=== PATIENT | female | born 1945 | race Caucasian/White ===

== ENCOUNTER 2017-04-15 16:37 | Inpatient (IN) | payer MEDICARE, BC ==
[2017-04-15] MEDS ORDERED: NORMAL SALINE 1,000 ML IV ONE ×2 (17:04→19:41)
--- NOTE | 2017-04-15 17:20 | ERNOTE ---
Medical Problem HPI - Narrative Date of Service: 04/15/17 - General Chief Complaint: General Assessment Time Seen by Provider: 04/15/17 16:54 Source: patient Exam Limitations: no limitations - Immun/Allergies/Home Medications Immunizations: IMMUNIZATION HX Immunizations Up to Date Yes History of Influenza Vaccine Yes Hx Pneumococcal Vaccination Yes Allergies/Adverse Reactions: Allergies loratadine [From Claritin] Allergy (Unknown, Verified 04/15/17 16:55) pseudoephedrine HCl [From Sudafed] Allergy (Verified 04/15/17 16:55) enalapril maleate [From Vasotec] Adverse Reaction (Unknown, Verified 04/15/17 16 :55) enalaprilat dihydrate [From Vasotec] Adverse Reaction (Unknown, Verified 16:55) nitrofurantoin [From Macrobid] Adverse Reaction (Unknown, Verified 04/15/17 16: 55) nitrofurantoin macrocrystalline [From Macrobid] Adverse Reaction (Unknown, Verified 04/15/17 16:55) Penicillins Adverse Reaction (Unknown, Verified 04/15/17 16:55) Home Medications: HOME MEDICATIONS Aspirin [Aspirin EC] 81 mg PO DAILY 01/04/16 [Last Taken 01/04/16 08:00] Calcium Carbonate/Vitamin D3 [Os-Doug 500-Vit D3 600 Caplet] 1 each PO TID [Last Taken 01/04/16 12:00] Magnesium 250 mg PO DAILY 01/04/16 [Last Taken 01/04/16 08:00] Montelukast Sodium [Singulair] 10 mg PO DAILY 01/04/16 [Last Taken 01/03/16] Omeprazole [Prilosec] 40 mg PO BID 01/04/16 [Last Taken 01/04/16 08:00] Levothyroxine Sodium [Synthroid] 25 mcg PO DAILY #30 tablet 01/12/16 [Last Taken Unknown] Melatonin 3,000 mcg PO HS tablet 01/12/16 [Last Taken Unknown] Atorvastatin Calcium [Lipitor] 40 mg PO DAILY 03/07/16 [Last Taken Unknown] Docusate Sodium [Colace] 100 mg PO BID 03/07/16 [Last Taken Unknown] Hydrochlorothiazide 12.5 mg PO DAILY 03/07/16 [Last Taken Unknown] Albuterol Sulfate [Proair Hfa] 1 - 2 puff IH Q4H PRN 04/15/17 [Last Taken Unknown] Carbidopa/Levodopa 25/100 [Sinemet 25/100] 2 tab PO QID 04/15/17 [Last Taken Unknown] Methenamine Hippurate 1 gm PO BID 04/15/17 [Last Taken Unknown] Montelukast Sodium [Singulair] 10 mg PO HS 04/15/17 [Last Taken Unknown] QUEtiapine FUMARATE [Seroquel] 25 mg PO BID 04/15/17 [Last Taken Unknown] QUEtiapine FUMARATE [Seroquel] 75 mg PO HS 04/15/17 [Last Taken Unknown] QUEtiapine FUMARATE [Seroquel] 125 mg PO QAM 04/15/17 [Last Taken Unknown] - History of Present History Narrative: Pt. comes in with c/o weakness, SOB with exertion, mid sternal chest pain, fever , dysuria, nausea, and vomiting for three days. Pt. states that symptoms have worsened over the past three days and pt. has become very weak over the past day. Pt. denies any dizziness, diarrhea, abd pain, recent falls, illness, prehospital treatment, alleviating factors, aggravating factors or prehospital treatment. Review of Systems - Review of Systems Constitutional: Present: fever, diaphoresis, weakness, fatigue, malaise. Absent : chills, weight loss EYE: Present: no symptoms reported ENT: Present: no symptoms reported Respiratory: Present: shortness of breath. Absent: cough, orthopnea, wheezing Cardiology: Present: chest pain. Absent: palpitations, syncope, edema Gastrointestinal/Abdominal: Present: nausea, vomiting. Absent: diarrhea, abdominal pain Genitourinary: Present: dysuria. Absent: frequency, pain, decreased urinary output Musculoskeletal: Present: no symptoms reported. Absent: back pain, neck pain, joint pain Skin: Present: no symptoms reported. Absent: change in color Neurological: Present: weakness. Absent: headache, dizziness/light-headedness, numbness, tingling All Other Systems: All systems neg except as marked - Patient's Past Medical History Patient History - Medical: Anxiety, Diabetes Type 2, GERD, Headache, Hypothyroidism, Kidney stone, Osteoporosis, UTI'S Patient History - Cardiac/Respiratory: No pertinent hx Patient History - Cancer: No Hx of Cancer Patient History - Surgical Procedures: Appendectomy, Cholecystectomy, Colon Resection, , Hysterectomy, Other Patient History - Other: None - Family History Father Family History - Medical: , Diabetes Type 1 Family History - Cardiac/Respiratory: CVA/Stroke Mother Family History - Medical: , UTI'S - Social History Living Situations: home Abuse History: No History of abuse Psych History: Hx of Anxiety Does anyone smoke in the home?: No Smoking Status: Never smoker Alcohol Use: none Drug Use: none - Immunizations Immunizations Up to Date: Yes Hx Pneumococcal Vaccination: Yes History of Influenza Vaccine: Yes Physical Exam - Physical Exam General Appearance: Present: wd/wn, lethargic Head Exam: Present: normal inspection, no evidence of injury Eye Exam: Normal inspection: bilateral, PERRL: bilateral, EOMI: bilateral Ears, Nose, Throat: Present: normal ENT inspection, normal pharynx Neck: Present: normal inspection, nontender. Absent: lymphadenopathy (R), lymphadenopathy (L) Respiratory: Present: no respiratory distress, normal breath sounds, no accessory muscle use, chest nontender, lungs clear. Absent: rales, rhonchi, wheezing Cardiovascular/Chest: Present: no murmur, normal peripheral pulses, tachycardia Gastrointestinal/Abdominal: Present: normal bowel sounds, nondistended, soft, no organomegaly, tenderness - mid upper epigastric Back Exam: Present: normal inspection, normal range of motion, no CVA tenderness , no vertebral tenderness Extremity Exam: Present: normal inspection, non-tender, normal range of motion, no edema Neurological Exam: Present: oriented, normal mood/affect, management professionals II-XII nml as tested, normal cerebellar test - gross general tremor, motor weakness - generalized Skin Exam: Present: warm/dry, pallor ED Progress - Date and Time Seen: Date and Time: 04/15/17 18:17 Pt. with evidence of systemic infection and hypokalemia will start replacing potassium and evaluate for site of infection. 04/15/17 18:[address] Copeland and will admit to her service for Urosepsis, and hypokalemia. - Vital Signs Patient's Vital Signs:: I have reviewed the patient's vital signs. Vital Signs: Vital Signs 04/15/17 16:46 Temperature 37.8 C H Pulse Rate 107 H Respiratory 16 Rate Blood Pressure 120/64 O2 Sat by Pulse 95 Oximetry - EKG EKG: other - sinus tachycardia rate in 90s to low 100s with artifact in ECG unable to measure for ST changes. EKG read: Reviewed by me - Progress/Reassessment Chief Complaint: General Assessment Departure - Departure Clinical Impression: Hypokalemia, Elevated procalcitonin Sepsis Qualifiers: Sepsis type: sepsis due to unspecified organism Qualified Code(s): A41.9 - Sepsis, unspecified organism UTI (urinary tract infection) Qualifiers: Urinary tract infection type: acute cystitis Hematuria presence: without hematuria Qualified Code(s): N30.00 - Acute cystitis without hematuria Disposition: [facility] Condition: Serious
[2017-04-15 17:22] LABS: Hemoglobin 12.6 gm/dL (12.5-16.0); Mean Cell Volume 83.5 fl (78-100); Mean Corpuscular Hemoglobin 28.4 pg (27-31); Mean Corpuscular Hgb Conc 34.1 g/dl (32-36); Mean Platelet Volume 11.3 fl (6.0-9.5); Platelet Count 107 K/mm3 (150-450); Red Blood Count 4.43 M/mm3 (4.2-5.4); Red Cell Distribution Width 15.9 % (11.5-14.0); White Blood Count 17.8 K/mm3 (4.0-10.5)
[2017-04-15 17:32] LABS: Total Cells Counted 100
[2017-04-15 17:42] LABS: ALT 6 U/L (19-67); AST 12 U/L (0-48); Albumin * 3.1 gm/dl (3.4-5.0); Alkaline Phosphatase * 96 U/L (50-170); Amylase * 25 U/L (25-115); Anion Gap 19.1 mmol/L (6.8-13.8); BNP * 425 pg/mL (5-325); Bilirubin, Total 1.2 mg/dL (0.0-1.1); Blood Urea Nitrogen 20 mg/dL (3-23); Ca. Corrected For Albumin 9.3 mg/dL (8.4-10.2); Calcium * 8.9 mg/dL (7.9-10.9); Carbon Dioxide 22.7 mmol/L (24-32.6); Chloride 97 mmol/L (97-106); Glucose * 150 mg/dL (70-110); Lipase 72 U/L (73-393); Potassium 2.8 mmol/L (3.4-4.6); Sodium 136 mmol/L (132-142); Total Protein 7.8 gm/dL (6.2-8.2); Troponin I Less than 0.017 ng/ml (0.00-0.10)
[2017-04-15] MEDS: POTASSIUM CHLORIDE 100 ML IV SCH ×5 (18:02→23:24)
[2017-04-15 18:03] LABS: Urine Bilirubin Negative (NEGATIVE); Urine Blood 250 /ul (NEGATIVE); Urine Ketone 5 mg/dL (NEGATIVE); Urine Nitrite Negative (NEGATIVE); Urine Protein 100 mg/dL (NEGATIVE); Urine Urobilinogen Normal (NORMAL)
[2017-04-15 18:19] LABS: Urine Appearance Cloudy; Urine Color Yellow; Urine WBC >50 /hpf (0-5)
[2017-04-15 18:20] LABS: Urine Bacteria 3+
[2017-04-15 18:38] LABS: Band 2 % (0-2.0); Lymphocyte 2 % (20-51); Monocyte 14 % (0-9); Neutrophil 82 % (42-75); Neutrophil # 14.6 K/mm3 (1.3-6.0)
[2017-04-15 18:40] LABS: Platelet Estimate Decreased (NORMAL); RBC Morphology Normal (NORMAL)
[2017-04-15 18:41] LABS: Dohle Bodies 1+; Giant Platelets 1+; Toxic Granulation Trace
[2017-04-15] MEDS: NORMAL SALINE 1,000 ML IV PRN ×2 (18:44→22:48)
[2017-04-15] MEDS ORDERED: ACETAMINOPHEN 325 MG TABLET PO ONE (19:03)
[2017-04-15] MEDS ORDERED: ACETAMINOPHEN 325 MG TABLET ONE (19:04)
[2017-04-15] MEDS ORDERED: ALBUTEROL SULFATE 2.5 MG/3 ML VIAL.NEB IH ONE (19:20)
[2017-04-15] MEDS ORDERED: ALBUTEROL SULFATE 2.5 MG/0.5 ML VIAL.NEB IH ONE ×2 (19:20)
[2017-04-15] MEDS ORDERED: LORazepam 2 MG/ML DISP.SYRIN IV ONE (19:21)
[2017-04-15] MEDS ORDERED: LORazepam 2 MG/ML DISP.SYRIN ONE (19:21)
[2017-04-15] MEDS ORDERED: KETOROLAC TROMETHAMINE 30 MG/ML VIAL IV ONE (19:39)
[2017-04-15] MEDS ORDERED: KETOROLAC TROMETHAMINE 30 MG/ML VIAL ONE (19:41)
[2017-04-15] MEDS ORDERED: NORMAL SALINE 1,000 ML IV PRN (20:16)
[2017-04-15] MEDS ORDERED: ALBUTEROL SULFATE 200 PUFF INHALER IH PRN ×2 (21:49)
--- NOTE | 2017-04-15 22:11 | HP ---
<IasiMouna - Last Filed: 04/16/17 06:07> Chief Complaint - Chief Complaint Date of Service: 04/15/17 Time of Service: 20:45 Chief Complaint: " Weakness, nausea, burning pain with urination". Source of HPI- Pt; reliable, pt's daughter- Gene, ER provider report. History of Present Illness: Mrs. Fisher is a 71-yr-old WF of Dr. Evaristo Vincent with a PMH of: Anxiety, Asthma, Diabetes, GERD,HTN, Kidney Stones, Lewy Body Dementia, Osteoporosis, Parkinsonism & Shy- Drager Syndrome. History is mostly provided by pt's daughter Wicho. She states that Mrs. Fisher begun developing nausea & weakness and had a low grade fever of 99.7 on Friday 04/13. On Friday, She had no appetite, her weakness was getting worse and she complained of burning pain with urination. Then today, she begun vomiting and was still very weak and therefore they chose to bring her to the [facility] ER. She denies coughing , SOB, Abdominal pain & diarrhea. At the ED, the CXR did not have any acute findings. However, the Lab-work was remarkable for:Leukocytotis with a WBC of 17 ,800 and left shift, elevated lactic acid of 3.4, & Hypokalemia with a 2.8 level. The UA revealed she had a UTI. She was also febrile with temps of 39.0, was tachycardic and tachypneic. She will need to be admitted inpatient due to Sepsis secondary to a UTI. - Patient's Past Medical History Patient History - Medical: Anxiety, GERD, Headache, Hypothyroidism, Kidney stone , Osteoporosis, UTI'S, Other - ewy Body Dementia, Osteoporosis, Parkinsonism & Shy- Drager Syndrome. Patient History - Cardiac/Respiratory: No pertinent hx, Hypertension Patient History - Cancer: No Hx of Cancer Patient History - Surgical Procedures: Appendectomy, Cholecystectomy, Colon Resection, , Hysterectomy, Other Patient History - Other: None LMP (females 10-50): unknown - Family History Father Family History - Medical: , Diabetes Type 2 Family History - Cardiac/Respiratory: CVA/Stroke Family History - Cancer: Pancreatic Mother Family History - Medical: , UTI'S Family History - Cardiac/Respiratory: No pertinent hx Family History - Cancer: Melanoma - Social History Living Situations: home Abuse History: No History of abuse Psych History: Hx of Anxiety Does anyone smoke in the home?: No Smoking Status: Never smoker Have you smoked in the past 12 months: No Do you dip or chew tobacco: No Alcohol Use: none Drug Use: none - Immunizations Immunizations Up to Date: Yes Hx Pneumococcal Vaccination: Yes History of Influenza Vaccine: Yes Review Of Systems (GEN) - Review of Systems Generalized/Overall Review: Present: Weakness, Chills, Fever, Malaise, Diaphoresis EENTM: Absent: Eye Pain, Blurred Vision, Double Vision Respiratory: Absent: Cough, Shortness of Breath, Orthopnea Cardiac: Absent: Chest Pain, Edema, Palpitations Abdominal: Present: Nausea, Vomiting. Absent: Hematemesis, Abdominal Pain, Constipation, Diarrhea Genitourinary: Present: Burning, Urgency, Frequency. Absent: Incontinent, Hematuria Musculoskeletal: Absent: Joint Pain, Back Pain, Joint Swelling Neurological: Present: Tremors. Absent: Headache, Anxiety, Depressed Skin: Present: Dryness, Lesions Endocrine: Present: Intolerance to Cold. Absent: Increased Hunger, Increased Thirst Misc: All systems neg except as marked Allergies/Adverse Reactions: Allergies Allergy/AdvReac Type Severity Reaction Status Date / Time loratadine [From Claritin] Allergy Unknown Verified 04/15/17 16:55 pseudoephedrine HCl Allergy Verified 04/15/17 16:55 [From Sudafed] enalapril maleate AdvReac Unknown Verified 04/15/17 16:55 [From Vasotec] enalaprilat dihydrate AdvReac Unknown Verified 04/15/17 16:55 [From Vasotec] nitrofurantoin AdvReac Unknown Verified 04/15/17 16:55 [From Macrobid] nitrofurantoin AdvReac Unknown Verified 04/15/17 16:55 macrocrystalline [From Macrobid] Penicillins AdvReac Unknown Verified 04/15/17 16:55 Home Medications: HOME MEDICATIONS Aspirin [Aspirin EC] 81 mg PO DAILY 01/04/16 [Last Taken 01/04/16 08:00] Calcium Carbonate/Vitamin D3 [Os-Doug 500-Vit D3 600 Caplet] 1 each PO TID [Last Taken 01/04/16 12:00] Magnesium 250 mg PO DAILY 01/04/16 [Last Taken 01/04/16 08:00] Montelukast Sodium [Singulair] 10 mg PO DAILY 01/04/16 [Last Taken 01/03/16] Omeprazole [Prilosec] 40 mg PO BID 01/04/16 [Last Taken 01/04/16 08:00] Levothyroxine Sodium [Synthroid] 25 mcg PO DAILY #30 tablet 01/12/16 [Last Taken Unknown] Melatonin 3,000 mcg PO HS tablet 01/12/16 [Last Taken Unknown] Atorvastatin Calcium [Lipitor] 40 mg PO DAILY 03/07/16 [Last Taken Unknown] Docusate Sodium [Colace] 100 mg PO BID 03/07/16 [Last Taken Unknown] Hydrochlorothiazide 12.5 mg PO DAILY 03/07/16 [Last Taken Unknown] Albuterol Sulfate [Proair Hfa] 1 - 2 puff IH Q4H PRN 04/15/17 [Last Taken Unknown] Carbidopa/Levodopa 25/100 [Sinemet 25/100] 2 tab PO TID 04/15/17 [Last Taken Unknown] Carbidopa/Levodopa Cr 50/200 [Sinemet Cr 50/200] 1 tab PO HS 04/15/17 [Last Taken 04/14/17 20:00] Carbidopa/Levodopa [Carbidopa-Levodopa 25-100 Tab] 1 each PO HS 04/15/17 [Last Taken 04/14/17 20:00] Methenamine Hippurate 1 gm PO BID 04/15/17 [Last Taken Unknown] QUEtiapine FUMARATE [Seroquel] 12.5 mg PO DAILY 04/15/17 [Last Taken 04/15/17 08 :00] QUEtiapine FUMARATE [Seroquel] 25 mg PO BID 04/15/17 [Last Taken Unknown] QUEtiapine FUMARATE [Seroquel] 75 mg PO HS 04/15/17 [Last Taken Unknown] Exam - Exam Vital Signs: Vital Signs - Last Taken Temp 39 C H 04/15/17 21:47 Pulse 105 H 04/15/17 21:47 Resp 28 H 04/15/17 21:47 BP 105/64 04/15/17 21:47 Pulse Ox 97 04/15/17 21:47 Constitutional: Present: Alert, Oriented x3, Cooperative, Mild distress ENT Exam: Present: hearing grossly normal, dry mucous membranes. Absent: nasal drainage, pharyngeal erythema Eye Exam: bilateral eye: normal inspection, PERRL Neck: Present: full range of motion, supple, normal inspection Back Exam: Present: normal inspection, no CVA tenderness Breasts: Present: Exam deferred Respiratory: Present: lungs clear, No rales, No wheezing Cardiovascular/Chest: Present: regular rate, rhythm, no chest tenderness, no edema Abdomen: Present: Normal bowel sounds, soft, nontender /Rectal: Present: Exam deferred Extremity: Present: normal range of motion, non-tender, normal inspection Skin Exam: Present: no cyanosis, diaphoresis Lymphatic: Present: no adenopathy Neurologic: Present: alert, oriented x 3, other - Tremors Appearance: Present: appropriate appearance, impaired remote memory Eye contact: Present: good eye contact, normal speech Thoughts: Present: normal thought pattern, no apparent hallucination Diagnostic Studies: Abnormal Lab Results 04/15/17 Range/Units 19:54 Lactic Acid, Venous 3.4 H* (0.4-1.9) mmol/L Laboratory Results WBC 17.8 K/mm3 (4.0-10.5) H 04/15/17 17:20 RBC 4.43 M/mm3 (4.2-5.4) 04/15/17 17:20 Hgb 12.6 gm/dL (12.5-16.0) 04/15/17 17:20 Hct 37.0 % (37.0-47.0) 04/15/17 17:20 MCV 83.5 fl (78-100) 04/15/17 17:20 MCH 28.4 pg (27-31) 04/15/17 17:20 MCHC 34.1 g/dl (32-36) 04/15/17 17:20 RDW 15.9 % (11.5-14.0) H 04/15/17 17:20 Plt Count 107 K/mm3 (150-450) L 04/15/17 17:20 MPV 11.3 fl (6.0-9.5) H 04/15/17 17:20 Neutrophils % (Manual) 82 % (42-75) H 04/15/17 17:20 Band Neuts % (Manual) 2 % (0-2.0) 04/15/17 17:20 Lymphocytes % (Manual) 2 % (20-51) L 04/15/17 17:20 Monocytes % (Manual) 14 % (0-9) H 04/15/17 17:20 Neutrophils # (Manual) 14.6 K/mm3 (1.3-6.0) H 04/15/17 17:20 Lymphocytes # (Manual) 0.4 k/mm3 (1.5-3.5) L 04/15/17 17:20 Monocytes # (Manual) 2.5 k/mm3 (0.0-1.0) H 04/15/17 17:20 Toxic Granulation Trace 04/15/17 17:20 Dohle Bodies 1+ 04/15/17 17:20 Platelet Estimate Decreased (NORMAL) L 04/15/17 17:20 Giant Platelets 1+ 04/15/17 17:20 RBC Morphology Normal (NORMAL) 04/15/17 17:20 Elliptocytes 1+ 04/15/17 17:20 Sodium 136 mmol/L (132-142) 04/15/17 17:20 Plasma Sodium 137 mmol/L (130-142) 04/15/17 17:20 Potassium 2.8 mmol/L (3.4-4.6) L D 04/15/17 17:20 Chloride 97 mmol/L (97-106) 04/15/17 17:20 Carbon Dioxide 22.7 mmol/L (24-32.6) L 04/15/17 17:20 Anion Gap 19.1 mmol/L (6.8-13.8) H 04/15/17 17:20 BUN 20 mg/dL (3-23) 04/15/17 17:20 Creatinine 1.43 mg/dL (0.4-1.4) H D 04/15/17 17:20 Est GFR (Non-Af Amer) 38 mL/min (60-130) L D 04/15/17 17:20 BUN/Creatinine Ratio 14.0 (9.0-21.6) 04/15/17 17:20 Random Glucose 150 mg/dL (70-110) H 04/15/17 17:20 Lactic Acid, Venous 3.4 mmol/L (0.4-1.9) H* 04/15/17 19:54 Calcium 8.9 mg/dL (7.9-10.9) 04/15/17 17:20 Calcium Adj for Albumin 9.3 mg/dL (8.4-10.2) 04/15/17 17:20 Total Bilirubin 1.2 mg/dL (0.0-1.1) H 04/15/17 17:20 AST 12 U/L (0-48) 04/15/17 17:20 ALT 6 U/L (19-67) L 04/15/17 17:20 Alkaline Phosphatase 96 U/L (50-170) 04/15/17 17:20 Troponin I Less than 0.017 ng/ml (0.00-0.10) 04/15/17 17:20 B-Natriuretic Peptide 425 pg/mL (5-325) H 04/15/17 17:20 Total Protein 7.8 gm/dL (6.2-8.2) 04/15/17 17:20 Albumin 3.1 gm/dl (3.4-5.0) L 04/15/17 17:20 Amylase 25 U/L (25-115) 04/15/17 17:20 Lipase 72 U/L (73-393) L 04/15/17 17:20 Procalcitonin 5.10 ng/mL (0.05-0.50) H 04/15/17 17:20 Urine Color Yellow 04/15/17 17:51 Urine Appearance Cloudy 04/15/17 17:51 Urine pH 6.0 pH (5.0-7.0) 04/15/17 17:51 Ur Specific [place] 1.020 SP.GR. (1.005-1.010) 04/15/17 17:51 Urine Protein 100 mg/dL (NEGATIVE) H 04/15/17 17:51 Urine Glucose (UA) Negative mg/dL (NEGATIVE) 04/15/17 17:51 Urine Ketones 5 mg/dL (NEGATIVE) 04/15/17 17:51 Urine Blood 250 /ul (NEGATIVE) H 04/15/17 17:51 Urine Nitrate Negative (NEGATIVE) 04/15/17 17:51 Urine Bilirubin Negative mg/dl (NEGATIVE) 04/15/17 17:51 Prot Sulfosalicylic Acd QNS 04/15/17 17:51 Urine Urobilinogen Normal EU/dl (NORMAL) 04/15/17 17:51 Ur Leukocyte Esterase 100 /ul (NEGATIVE) H 04/15/17 17:51 Urine RBC 5-10 /hpf (0-5) H 04/15/17 17:51 Urine WBC >50 /hpf (0-5) H 04/15/17 17:51 Ur Epithelial Cells Trace /hpf (0-5) 04/15/17 17:51 Urine Bacteria 3+ (NONE) H 04/15/17 17:51 Hyaline Casts 5-10 /LPF (NONE) H 04/15/17 17:51 Urine Culture Comments Culture to follow 04/15/17 17:51 Assessment/Plan - Assessment/Plan (1) Sepsis Assessment: Pt noted to have fevers, elevated WBC, tachycardia, tachypnea, elevated lactic acid & Suspected source of infection being a UTI thus qualifying her to be admitted inpatient for Sepsis. Received treatment under sepsis protocol; aggressive IVF hydration, IV Antibiotics, trending lactic acid. Monitor CBC in am. Problem: Acute QualifierTitle: Sepsis type: sepsis due to unspecified organism Qualified Code(s): A41.9 - Sepsis, unspecified organism (2) Hypokalemia Assessment: K noted to be 2.8. Received Pottasium 40 meq IV replenishment. BMP in am. Problem: Acute (3) UTI (urinary tract infection) Assessment: UA shows UTI. On Rocephin IV. Will switch antibiotics once urine culture results. Problem: Acute QualifierTitle: Urinary tract infection type: acute cystitis Hematuria presence: without hematuria Qualified Code(s): N30.00 - Acute cystitis without hematuria (4) HTN (hypertension) Assessment: Stable- On hydrochlorothiazide. Problem: Chronic QualifierTitle: Hypertension type: essential hypertension Qualified Code( s): I10 - Essential (primary) hypertension (5) Parkinson disease Assessment: Stable- On Carbidopa/Levodopa. Problem: Chronic (6) GERD (gastroesophageal reflux disease) Assessment: Stable- On Protonix. Problem: Chronic (7) Anxiety Problem: Chronic <Evaristo Vincent - Last Filed: 04/16/17 08:16> Immunizations: IMMUNIZATION HX Immunizations Up to Date Yes History of Influenza Vaccine Yes Hx Pneumococcal Vaccination Yes Exam - Exam Vital Signs: Vital Signs - Last Taken Temp 36.8 C 04/16/17 05:35 Pulse 80 04/16/17 05:35 Resp 18 04/16/17 05:35 BP 138/62 04/16/17 05:35 Pulse Ox 100 04/16/17 05:35 Diagnostic Studies: Abnormal Lab Results 04/15/17 04/16/17 04/16/17 Range/Units 19:54 05:57 05:57 WBC 13.2 H D (4.0-10.5) K/mm3 RBC 3.92 L (4.2-5.4) M/mm3 Hgb 11.1 L (12.5-16.0) gm/dL Hct 33.7 L (37.0-47.0) % RDW 16.0 H (11.5-14.0) % Plt Count 88 L (150-450) K/mm3 MPV 11.9 H (6.0-9.5) fl Band Neuts % (Manual) 13 H (0-2.0) % Lymphocytes % (Manual) 5 L (20-51) % Neutrophils # (Manual) 9.9 H (1.3-6.0) K/mm3 Lymphocytes # (Manual) 0.7 L (1.5-3.5) k/mm3 Platelet Estimate Decreased L (NORMAL) Anion Gap 14.1 H (6.8-13.8) mmol/L Est GFR (Non-Af Amer) 41 L (60-130) mL/min Lactic Acid, Venous 3.4 H* (0.4-1.9) mmol/L Calcium 7.8 L (7.9-10.9) mg/dL Laboratory Results WBC 13.2 K/mm3 (4.0-10.5) H D 04/16/17 05:57 RBC 3.92 M/mm3 (4.2-5.4) L 04/16/17 05:57 Hgb 11.1 gm/dL (12.5-16.0) L 04/16/17 05:57 Hct 33.7 % (37.0-47.0) L 04/16/17 05:57 MCV 86.0 fl (78-100) 04/16/17 05:57 MCH 28.3 pg (27-31) 04/16/17 05:57 MCHC 32.9 g/dl (32-36) 04/16/17 05:57 RDW 16.0 % (11.5-14.0) H 04/16/17 05:57 Plt Count 88 K/mm3 (150-450) L 04/16/17 05:57 MPV 11.9 fl (6.0-9.5) H 04/16/17 05:57 Neutrophils % (Manual) 75 % (42-75) 04/16/17 05:57 Band Neuts % (Manual) 13 % (0-2.0) H 04/16/17 05:57 Lymphocytes % (Manual) 5 % (20-51) L 04/16/17 05:57 Monocytes % (Manual) 6 % (0-9) 04/16/17 05:57 Neutrophils # (Manual) 9.9 K/mm3 (1.3-6.0) H 04/16/17 05:57 Lymphocytes # (Manual) 0.7 k/mm3 (1.5-3.5) L 04/16/17 05:57 Monocytes # (Manual) 0.8 k/mm3 (0.0-1.0) 04/16/17 05:57 Atypic/Reactive Lymphs 1 % (0-2) 04/16/17 05:57 Toxic Granulation Trace 04/16/17 05:57 Toxic Vacuolation Trace 04/16/17 05:57 Dohle Bodies 1+ 04/15/17 17:20 Platelet Estimate Decreased (NORMAL) L 04/16/17 05:57 Giant Platelets 1+ 04/15/17 17:20 RBC Morphology +n (NORMAL) 04/16/17 05:57 Elliptocytes 1+ 04/15/17 17:20 Sodium 142 mmol/L (132-142) 04/16/17 05:57 Plasma Sodium 142 mmol/L (130-142) 04/16/17 05:57 Potassium 3.5 mmol/L (3.4-4.6) D 04/16/17 05:57 Chloride 106 mmol/L (97-106) 04/16/17 05:57 Carbon Dioxide 25.4 mmol/L (24-32.6) 04/16/17 05:57 Anion Gap 14.1 mmol/L (6.8-13.8) H 04/16/17 05:57 BUN 21 mg/dL (3-23) 04/16/17 05:57 Creatinine 1.35 mg/dL (0.4-1.4) 04/16/17 05:57 Est GFR (Non-Af Amer) 41 mL/min (60-130) L 04/16/17 05:57 BUN/Creatinine Ratio 15.6 (9.0-21.6) 04/16/17 05:57 Random Glucose 107 mg/dL (70-110) 04/16/17 05:57 Lactic Acid, Venous 3.4 mmol/L (0.4-1.9) H* 04/15/17 19:54 Calcium 7.8 mg/dL (7.9-10.9) L 04/16/17 05:57 Calcium Adj for Albumin 9.3 mg/dL (8.4-10.2) 04/15/17 17:20 Total Bilirubin 1.2 mg/dL (0.0-1.1) H 04/15/17 17:20 AST 12 U/L (0-48) 04/15/17 17:20 ALT 6 U/L (19-67) L 04/15/17 17:20 Alkaline Phosphatase 96 U/L (50-170) 04/15/17 17:20 Troponin I Less than 0.017 ng/ml (0.00-0.10) 04/15/17 17:20 B-Natriuretic Peptide 425 pg/mL (5-325) H 04/15/17 17:20 Total Protein 7.8 gm/dL (6.2-8.2) 04/15/17 17:20 Albumin 3.1 gm/dl (3.4-5.0) L 04/15/17 17:20 Amylase 25 U/L (25-115) 04/15/17 17:20 Lipase 72 U/L (73-393) L 04/15/17 17:20 Procalcitonin 5.10 ng/mL (0.05-0.50) H 04/15/17 17:20 Urine Color Yellow 04/15/17 17:51 Urine Appearance Cloudy 04/15/17 17:51 Urine pH 6.0 pH (5.0-7.0) 04/15/17 17:51 Ur Specific [place] 1.020 SP.GR. (1.005-1.010) 04/15/17 17:51 Urine Protein 100 mg/dL (NEGATIVE) H 04/15/17 17:51 Urine Glucose (UA) Negative mg/dL (NEGATIVE) 04/15/17 17:51 Urine Ketones 5 mg/dL (NEGATIVE) 04/15/17 17:51 Urine Blood 250 /ul (NEGATIVE) H 04/15/17 17:51 Urine Nitrate Negative (NEGATIVE) 04/15/17 17:51 Urine Bilirubin Negative mg/dl (NEGATIVE) 04/15/17 17:51 Prot Sulfosalicylic Acd QNS 04/15/17 17:51 Urine Urobilinogen Normal EU/dl (NORMAL) 04/15/17 17:51 Ur Leukocyte Esterase 100 /ul (NEGATIVE) H 04/15/17 17:51 Urine RBC 5-10 /hpf (0-5) H 04/15/17 17:51 Urine WBC >50 /hpf (0-5) H 04/15/17 17:51 Ur Epithelial Cells Trace /hpf (0-5) 04/15/17 17:51 Urine Bacteria 3+ (NONE) H 04/15/17 17:51 Hyaline Casts 5-10 /LPF (NONE) H 04/15/17 17:51 Urine Culture Comments Culture to follow 04/15/17 17:51 Assessment/Plan - Narrative Narrative: I agree with the assessment and plan, except that the patient qualifies for acute care. I directed all of our nurse practitioner hospitalist care for this patient.
[2017-04-15] MEDS: MONTELUKAST SODIUM 10 MG TABLET PO SCH (22:47)
[2017-04-15] MEDS: CARBIDOPA/LEVODOPA CR 50/200 1 TAB TABLET.SA PO SCH (22:47)
[2017-04-15] MEDS: DOCUSATE SODIUM 100 MG CAPSULE PO SCH (22:47)
[2017-04-15] MEDS: CALCIUM CARBONATE/VITAMIN D3 1 TAB TABLET PO SCH (22:55)
[2017-04-15] MEDS: CARBIDOPA/LEVODOPA 25/100 1 TAB TABLET PO SCH (22:55)
[2017-04-16] MEDS: POTASSIUM CHLORIDE 100 ML IV SCH (00:45)
[2017-04-16 06:02] LABS: Hematocrit 33.7 % (37.0-47.0); Hemoglobin 11.1 gm/dL (12.5-16.0); Mean Corpuscular Hemoglobin 28.3 pg (27-31); Mean Corpuscular Hgb Conc 32.9 g/dl (32-36); Mean Platelet Volume 11.9 fl (6.0-9.5); Platelet Count 88 K/mm3 (150-450); Red Blood Count 3.92 M/mm3 (4.2-5.4); White Blood Count 13.2 K/mm3 (4.0-10.5)
[2017-04-16] MEDS: NORMAL SALINE 1,000 ML IV PRN ×3 (06:10→11:09)
[2017-04-16 06:13] LABS: Total Cells Counted 100
[2017-04-16 06:19] LABS: Anion Gap 14.1 mmol/L (6.8-13.8); BUN/Creatinine Ratio 15.6 (9.0-21.6); Calcium * 7.8 mg/dL (7.9-10.9); Carbon Dioxide 25.4 mmol/L (24-32.6); Estimated Creat Clear 27.5; Potassium 3.5 mmol/L (3.4-4.6)
[2017-04-16] MEDS: PANTOPRAZOLE SODIUM 40 MG TABLET.EC PO SCH ×2 (06:58→16:31)
[2017-04-16] MEDS: ACETAMINOPHEN 325 MG TABLET PO PRN ×2 (06:59→17:25)
[2017-04-16] MEDS ORDERED: CARBIDOPA/LEVODOPA 25/100 1 TAB TABLET PO SCH (07:00)
[2017-04-16] MEDS: CARBIDOPA/LEVODOPA 25/100 1 TAB TABLET PO SCH ×4 (07:09→20:59)
[2017-04-16 07:21] LABS: Atypical (Reactive) Lymph 1 % (0-2); Band 13 % (0-2.0); Lymphocyte 5 % (20-51); Monocyte 6 % (0-9); Neutrophil 75 % (42-75); Neutrophil # 9.9 K/mm3 (1.3-6.0)
[2017-04-16 07:22] LABS: Platelet Estimate Decreased (NORMAL)
[2017-04-16 07:24] LABS: Toxic Granulation Trace
[2017-04-16] MEDS ORDERED: NORMAL SALINE 1,000 ML IV ONE ×2 (07:42→10:00)
[2017-04-16] MEDS: LEVOTHYROXINE SODIUM 25 MCG TABLET PO SCH (08:02)
[2017-04-16] MEDS: DOCUSATE SODIUM 100 MG CAPSULE PO SCH ×2 (08:02→20:51)
[2017-04-16] MEDS: MAGNESIUM OXIDE 400 MG TABLET PO SCH (08:02)
[2017-04-16] MEDS: CALCIUM CARBONATE/VITAMIN D3 1 TAB TABLET PO SCH ×3 (08:02→16:31)
[2017-04-16] MEDS: ASPIRIN 81 MG TABLET.DR PO SCH (08:02)
[2017-04-16] MEDS: HYDROCHLOROTHIAZIDE 12.5 MG CAPSULE PO SCH (08:02)
--- NOTE | 2017-04-16 08:23 | PN ---
Subjective - Date and Time Seen Date: 04/16/17 Time: 08:17 Subjective Narrative: Improved this morning, but still doesn't feel well. Still febrile. Very thirsty. Very tremulous due to her Parkinson's. Objective - Review of Systems Generalized/Overall Review: Reports: Weakness, Fever EENTM: Reports: No Symptoms Reported Respiratory: Reports: No Symptoms Reported Cardiac: Reports: No Symptoms Reported Abdominal: Reports: No Symptoms Reported Genitourinary Symptoms: Reports: Burning - ddd Musculoskeletal Complaints: Reports: No Symptoms Reported Neurological: Reports: No Symptoms Reported Skin: Reports: No Symptoms Reported Endocrine: Reports: No Symptoms Reported Misc: All systems neg except as marked - Vitals Vitals: Last Vital Signs Selected Entries 04/16/17 05:35 Temperature 36.8 C Temperature Oral Source Pulse Rate 80 Respiratory 18 Rate Blood Pressure 138/62 Blood Pressure 87 Mean O2 Sat by Pulse 100 Oximetry Oxygen Delivery Room Air Method - Abnormal Lab Findings Abnormal Lab Findings: Abnormal Lab Results 04/15/17 04/16/17 04/16/17 Range/Units 19:54 05:57 05:57 WBC 13.2 H D (4.0-10.5) K/mm3 RBC 3.92 L (4.2-5.4) M/mm3 Hgb 11.1 L (12.5-16.0) gm/dL Hct 33.7 L (37.0-47.0) % RDW 16.0 H (11.5-14.0) % Plt Count 88 L (150-450) K/mm3 MPV 11.9 H (6.0-9.5) fl Band Neuts % (Manual) 13 H (0-2.0) % Lymphocytes % (Manual) 5 L (20-51) % Neutrophils # (Manual) 9.9 H (1.3-6.0) K/mm3 Lymphocytes # (Manual) 0.7 L (1.5-3.5) k/mm3 Platelet Estimate Decreased L (NORMAL) Anion Gap 14.1 H (6.8-13.8) mmol/L Est GFR (Non-Af Amer) 41 L (60-130) mL/min Lactic Acid, Venous 3.4 H* (0.4-1.9) mmol/L Calcium 7.8 L (7.9-10.9) mg/dL - Exam Constitutional: Present: Alert, Oriented x3, Cooperative, Well developed, No distress, Obese ENT Exam: Present: normal ENT inspection, hearing grossly normal Neck: Present: normal inspection Respiratory: Present: normal breath sounds, no respiratory distress Cardiovascular/Chest: Present: regular rate, rhythm, tachycardia Abdomen: Present: Normal bowel sounds, soft, nontender, nondistended, no rebound tenderness, no hepatospenomegaly, no masses, obese Extremity: Present: normal inspection, no pedal edema Skin Exam: Present: normal color, warm/dry, no cyanosis Neurologic: Present: alert, oriented x 3, other - marked parkinsonian tremor all extremities Appearance: Present: appropriate appearance, appropriate insight, neat Eye contact: Present: cooperative, good eye contact, normal speech Thoughts: Present: normal thought pattern Cauti Physician Documentation - Urinary Catheter Management Urethral (Carl) Date of Insertion: 04/15/17 Time of Insertion: 17:50 Assessment/Plan Plan Narrative: IV antibiotics, IV fluids, Follow labs, restore electrolytes, estimated stay three days. - Problems/Diagnosis (1) Bandemia Problem: Acute (2) Hypocalcemia Problem: Acute (3) Elevated procalcitonin Problem: Acute (4) Hypokalemia Problem: Acute (5) Sepsis Problem: Acute Qualifiers: Sepsis type: sepsis due to unspecified organism Qualified Code(s): A41.9 - Sepsis, unspecified organism (6) UTI (urinary tract infection) Problem: Acute Qualifiers: Urinary tract infection type: acute cystitis Hematuria presence: with hematuria Qualified Code(s): N30.01 - Acute cystitis with hematuria (7) GERD (gastroesophageal reflux disease) Problem: Chronic Qualifiers: Esophagitis presence: without esophagitis Qualified Code(s): K21.9 - Gastro -esophageal reflux disease without esophagitis (8) HTN (hypertension) Problem: Chronic Qualifiers: Hypertension type: essential hypertension Qualified Code(s): I10 - Essential (primary) hypertension (9) Parkinson disease Problem: Chronic (10) Altered mental status Problem: Acute Qualifiers: Altered mental status type: delirium Qualified Code(s): R41.0 - Disorientation, unspecified (11) Dehydration Problem: Acute (12) Hypothyroidism Problem: Chronic Qualifiers: Hypothyroidism type: acquired Qualified Code(s): E03.9 - Hypothyroidism, unspecified (13) Normochromic normocytic anemia Problem: Chronic (14) Thrombocytopenia Problem: Acute
[2017-04-16] MEDS: ENOXAPARIN SODIUM 30 MG/0.3 ML SYRG SC SCH (08:39)
[2017-04-16] MEDS ORDERED: MONTELUKAST SODIUM 10 MG TABLET PO SCH (16:00)
[2017-04-16] MEDS ORDERED: FUROSEMIDE 10 MG/ML VIAL IV ONE (17:30)
[2017-04-16] MEDS: ROSUVASTATIN CALCIUM 20 MG TABLET PO SCH (20:51)
[2017-04-16] MEDS: MELATONIN 3,000 MCG TABLET PO SCH (20:51)
[2017-04-16] MEDS: MONTELUKAST SODIUM 10 MG TABLET PO SCH (20:51)
[2017-04-16] MEDS: CARBIDOPA/LEVODOPA CR 50/200 1 TAB TABLET.SA PO SCH (20:59)
[2017-04-17 06:47] LABS: Hemoglobin 10.2 gm/dL (12.5-16.0); Mean Cell Volume 84.7 fl (78-100); Mean Corpuscular Hemoglobin 27.9 pg (27-31); Mean Corpuscular Hgb Conc 32.9 g/dl (32-36); Mean Platelet Volume 12.5 fl (6.0-9.5); Platelet Count 91 K/mm3 (150-450); Red Blood Count 3.66 M/mm3 (4.2-5.4); Red Cell Distribution Width 15.9 % (11.5-14.0); White Blood Count 13.4 K/mm3 (4.0-10.5)
[2017-04-17] MEDS: PANTOPRAZOLE SODIUM 40 MG TABLET.EC PO SCH ×2 (06:57→16:38)
[2017-04-17 06:58] LABS: Total Cells Counted 100
[2017-04-17] MEDS: CARBIDOPA/LEVODOPA 25/100 1 TAB TABLET PO SCH ×4 (06:59→21:28)
[2017-04-17 07:08] LABS: Albumin * 2.2 gm/dl (3.4-5.0); Anion Gap 11.3 mmol/L (6.8-13.8); BUN/Creatinine Ratio 13.5 (9.0-21.6); Bilirubin, Total 0.6 mg/dL (0.0-1.1); Ca. Corrected For Albumin 9.2 mg/dL (8.4-10.2); Calcium * 8.1 mg/dL (7.9-10.9); Carbon Dioxide 27.1 mmol/L (24-32.6); Total Protein 6.3 gm/dL (6.2-8.2)
[2017-04-17 07:19] LABS: Potassium 2.4 mmol/L (3.4-4.6)
[2017-04-17 07:43] LABS: Band 8 % (0-2.0); Eosinophil 1 % (0-3); Immature Granulocyte 1 (0-1); Lymphocyte 6 % (20-51); Neutrophil 79 % (42-75); Neutrophil # 10.6 K/mm3 (1.3-6.0)
[2017-04-17 07:44] LABS: Monocyte 6 % (0-9); Platelet Estimate Decreased (NORMAL)
[2017-04-17 07:51] LABS: Toxic Granulation 1+
[2017-04-17 07:55] LABS: RBC Morphology Normal (NORMAL)
[2017-04-17] MEDS: DOCUSATE SODIUM 100 MG CAPSULE PO SCH ×2 (09:45→20:35)
[2017-04-17] MEDS: ASPIRIN 81 MG TABLET.DR PO SCH (09:45)
[2017-04-17] MEDS: CALCIUM CARBONATE/VITAMIN D3 1 TAB TABLET PO SCH ×3 (09:45→16:38)
[2017-04-17] MEDS: HYDROCHLOROTHIAZIDE 12.5 MG CAPSULE PO SCH (09:46)
[2017-04-17] MEDS: MAGNESIUM OXIDE 400 MG TABLET PO SCH (09:46)
[2017-04-17] MEDS: LEVOTHYROXINE SODIUM 25 MCG TABLET PO SCH (09:46)
[2017-04-17] MEDS: POTASSIUM CHLORIDE 20 MEQ TABLET.SA PO SCH ×2 (09:46→12:00)
[2017-04-17] MEDS: ENOXAPARIN SODIUM 30 MG/0.3 ML SYRG SC SCH (09:46)
[2017-04-17] MEDS ORDERED: LORazepam 0.5 MG TABLET PO PRN (12:20)
--- NOTE | 2017-04-17 12:27 | PN ---
Subjective - Date and Time Seen Date: 04/17/17 Time: 07:40 Subjective Narrative: Improved this morning, but still doesn't feel well. Post nasal drip and cough. Objective - Review of Systems Generalized/Overall Review: Reports: Weakness, Malaise EENTM: Reports: Other Respiratory: Reports: Cough Cardiac: Reports: No Symptoms Reported Abdominal: Reports: No Symptoms Reported Genitourinary Symptoms: Reports: Dysuria Musculoskeletal Complaints: Reports: No Symptoms Reported Neurological: Reports: Pre-existing Deficit Skin: Reports: No Symptoms Reported Endocrine: Reports: No Symptoms Reported, Other Misc: All systems neg except as marked - Vitals Vitals: Last Vital Signs Selected Entries 04/17/17 07:00 Temperature 36.8 C Temperature Oral Source Pulse Rate 88 Respiratory 20 Rate Respiratory Normal Depth Blood Pressure 139/55 Blood Pressure Supine Position O2 Sat by Pulse 96 Oximetry Oxygen Delivery Room Air Method Oxygen Flow 0 Rate - Abnormal Lab Findings Abnormal Lab Findings: Abnormal Lab Results 04/17/17 04/17/17 Range/Units 06:33 06:33 WBC 13.4 H (4.0-10.5) K/mm3 RBC 3.66 L (4.2-5.4) M/mm3 Hgb 10.2 L (12.5-16.0) gm/dL Hct 31.0 L (37.0-47.0) % RDW 15.9 H (11.5-14.0) % Plt Count 91 L (150-450) K/mm3 MPV 12.5 H (6.0-9.5) fl Neutrophils % (Manual) 79 H (42-75) % Band Neuts % (Manual) 8 H (0-2.0) % Lymphocytes % (Manual) 6 L (20-51) % Neutrophils # (Manual) 10.6 H (1.3-6.0) K/mm3 Lymphocytes # (Manual) 0.8 L (1.5-3.5) k/mm3 Platelet Estimate Decreased L (NORMAL) Potassium 2.4 L* D (3.4-4.6) mmol/L Est GFR (Non-Af Amer) 52 L D (60-130) mL/min Random Glucose 115 H (70-110) mg/dL ALT 8 L (19-67) U/L Albumin 2.2 L (3.4-5.0) gm/dl - Exam Constitutional: Present: Alert, Oriented x3, Cooperative, Well developed, No distress, Obese ENT Exam: Present: normal ENT inspection, hearing grossly normal Neck: Present: normal inspection Respiratory: Present: lungs clear, no respiratory distress Cardiovascular/Chest: Present: regular rate, rhythm, no murmur Abdomen: Present: Normal bowel sounds, soft, nontender, nondistended, no rebound tenderness, no hepatospenomegaly, no masses, obese Extremity: Present: normal inspection, no pedal edema Skin Exam: Present: normal color, warm/dry, no cyanosis Neurologic: Present: alert, oriented x 3, other - parkinsonian tremor Appearance: Present: appropriate appearance, appropriate insight, neat, no memory impairment Eye contact: Present: cooperative, good eye contact, normal speech Thoughts: Present: normal thought pattern Cauti Physician Documentation - Urinary Catheter Management Urethral (Carl) Date of Insertion: 04/15/17 Time of Insertion: 17:50 Assessment/Plan Plan Narrative: dc tele. fluticasone for postnasal drip. follow labs. iv antibiotics. - Problems/Diagnosis (1) Bandemia Problem: Acute (2) Hypocalcemia Problem: Acute (3) Elevated procalcitonin Problem: Acute (4) Hypokalemia Problem: Acute (5) Sepsis Problem: Acute Qualifiers: Sepsis type: sepsis due to unspecified organism Qualified Code(s): A41.9 - Sepsis, unspecified organism (6) UTI (urinary tract infection) Problem: Acute Qualifiers: Urinary tract infection type: acute cystitis Hematuria presence: with hematuria Qualified Code(s): N30.01 - Acute cystitis with hematuria (7) GERD (gastroesophageal reflux disease) Problem: Chronic Qualifiers: Esophagitis presence: without esophagitis Qualified Code(s): K21.9 - Gastro -esophageal reflux disease without esophagitis (8) HTN (hypertension) Problem: Chronic Qualifiers: Hypertension type: essential hypertension Qualified Code(s): I10 - Essential (primary) hypertension (9) Parkinson disease Problem: Chronic (10) Altered mental status Problem: Acute Qualifiers: Altered mental status type: delirium Qualified Code(s): R41.0 - Disorientation, unspecified (11) Dehydration Problem: Acute (12) Hypothyroidism Problem: Chronic Qualifiers: Hypothyroidism type: acquired Qualified Code(s): E03.9 - Hypothyroidism, unspecified (13) Normochromic normocytic anemia Problem: Chronic (14) Thrombocytopenia Problem: Acute
[2017-04-17] MEDS: ACETAMINOPHEN 325 MG TABLET PO PRN (13:35)
[2017-04-17] MEDS: FLUTICASONE PROPIONATE 120 SPRAY INHALER NS SCH (13:55)
[2017-04-17] MEDS: POTASSIUM CHLORIDE 100 ML IV SCH ×2 (15:50→17:21)
[2017-04-17] MEDS ORDERED: POTASSIUM CHLORIDE 10 MEQ TABLET.SA PO SCH (17:00)
[2017-04-17] MEDS ORDERED: POTASSIUM CHLORIDE 10 MEQ TABLET.SA PO ONE (17:30)
[2017-04-17] MEDS: MELATONIN 3,000 MCG TABLET PO SCH (20:35)
[2017-04-17] MEDS: POTASSIUM CHLORIDE 10 MEQ TABLET.SA PO SCH (20:35)
[2017-04-17] MEDS: ROSUVASTATIN CALCIUM 20 MG TABLET PO SCH (20:36)
[2017-04-17] MEDS: MONTELUKAST SODIUM 10 MG TABLET PO SCH (20:39)
[2017-04-17] MEDS: CARBIDOPA/LEVODOPA CR 50/200 1 TAB TABLET.SA PO SCH (21:28)
[2017-04-18] MEDS: POTASSIUM CHLORIDE 10 MEQ TABLET.SA PO SCH ×2 (01:22→05:05)
[2017-04-18 05:58] LABS: Hematocrit 29.8 % (37.0-47.0); Hemoglobin 9.9 gm/dL (12.5-16.0); Mean Cell Volume 84.7 fl (78-100); Mean Corpuscular Hemoglobin 28.1 pg (27-31); Mean Corpuscular Hgb Conc 33.2 g/dl (32-36); Mean Platelet Volume 12.3 fl (6.0-9.5); Neutrophil # 7.9 K/mm3 (1.3-6.0); Neutrophil % 74.7 % (42-75.0); Platelet Count 105 K/mm3 (150-450); Red Blood Count 3.52 M/mm3 (4.2-5.4); Red Cell Distribution Width 16.2 % (11.5-14.0); White Blood Count 10.5 K/mm3 (4.0-10.5)
[2017-04-18 06:09] LABS: Total Cells Counted 100
[2017-04-18 06:28] LABS: Anion Gap 11.1 mmol/L (6.8-13.8); Calcium * 8.2 mg/dL (7.9-10.9); Carbon Dioxide 27.7 mmol/L (24-32.6); Estimated Creat Clear 40.7; Potassium 3.8 mmol/L (3.4-4.6)
[2017-04-18 06:30] LABS: Band 3 % (0-2.0); Basophil 1 % (0-1); Hypersegmented Polys 1+; Lymphocyte 5 % (20-51); Monocyte 4 % (0-9); Neutrophil 87 % (42-75); Neutrophil # 9.1 K/mm3 (1.3-6.0); Ovalocytes 2+; Platelet Estimate Normal (NORMAL); Toxic Granulation 2+
[2017-04-18] MEDS: CARBIDOPA/LEVODOPA 25/100 1 TAB TABLET PO SCH ×2 (07:26→11:55)
[2017-04-18] MEDS: PANTOPRAZOLE SODIUM 40 MG TABLET.EC PO SCH (07:27)
--- NOTE | 2017-04-18 07:49 | DS ---
(1) Bandemia Problem: Acute (2) Hypocalcemia Problem: Acute (3) Elevated procalcitonin Problem: Acute (4) Hypokalemia Problem: Acute (5) Sepsis Problem: Acute Qualifiers: Sepsis type: sepsis due to unspecified organism Qualified Code(s): A41.9 - Sepsis, unspecified organism (6) UTI (urinary tract infection) Problem: Acute Qualifiers: Urinary tract infection type: acute cystitis Hematuria presence: with hematuria Qualified Code(s): N30.01 - Acute cystitis with hematuria (7) GERD (gastroesophageal reflux disease) Problem: Chronic Qualifiers: Esophagitis presence: without esophagitis Qualified Code(s): K21.9 - Gastro -esophageal reflux disease without esophagitis (8) HTN (hypertension) Problem: Chronic Qualifiers: Hypertension type: essential hypertension Qualified Code(s): I10 - Essential (primary) hypertension (9) Parkinson disease Problem: Chronic (10) Altered mental status Problem: Acute Qualifiers: Altered mental status type: delirium Qualified Code(s): R41.0 - Disorientation, unspecified (11) Dehydration Problem: Acute (12) Hypothyroidism Problem: Chronic Qualifiers: Hypothyroidism type: acquired Qualified Code(s): E03.9 - Hypothyroidism, unspecified (13) Normochromic normocytic anemia Problem: Chronic (14) Thrombocytopenia Problem: Acute Description of Stay: Improved with IV antibiotics steadily. Low potassium corrected orally, as she did not tolerated IV. Postnasal drip treated with IV flonase. Agitation treated with ativan. HCTZ stopped due to low potassium, which was also aggravated by large amount of NS given to treat sepsis. Much better on day of discharge. Procedures Performed: none Discharge Disposition: Home self care Disposition: Home self-care Condition: Serious Discharge Activity: Activity as tolerated Discharge Diet: General/regular food Referrals: Evaristo Vincent MD [Primary Care Provider] - Problem Oriented Discharge Instructions to Patient/Family: Urinary Tract Infection, Adult, [id number], Sepsis, Adult Additional Patient Instructions (free text): TCM appointment at discharge. Call Hortencia at x [phone] when discharged. Follow up Dr. Blas Mcgregor 1 week. CBC BMP 1 week. Prescriptions (Any new or edited meds): Acetaminophen [Tylenol] 650 mg PO QID PRN #1 tablet PRN Reason: Mild Pain Ciprofloxacin HCl [Cipro] 500 mg PO BID #30 tab Fluticasone Propionate [Flonase] 2 spray NS DAILY #1 inhaler LORazepam [Ativan] 0.5 mg PO QID PRN #120 tablet PRN Reason: restlessness Complete Home Medications List: Complete Home Medication List: Aspirin [Aspirin EC] 81 mg PO DAILY 01/04/16 Calcium Carbonate/Vitamin D3 [Os-Doug 500-Vit D3 600 Caplet] 1 each PO TID Magnesium 250 mg PO DAILY 01/04/16 Montelukast Sodium [Singulair] 10 mg PO DAILY 01/04/16 Omeprazole [Prilosec] 40 mg PO BID 01/04/16 Levothyroxine Sodium [Synthroid] 25 mcg PO DAILY #30 tablet 01/12/16 Melatonin 3,000 mcg PO HS tablet 01/12/16 Atorvastatin Calcium [Lipitor] 40 mg PO DAILY 03/07/16 Docusate Sodium [Colace] 100 mg PO BID 03/07/16 Albuterol Sulfate [Proair Hfa] 1 - 2 puff IH Q4H PRN 04/15/17 Carbidopa/Levodopa 25/100 [Sinemet 25/100] 2 tab PO TID 04/15/17 Carbidopa/Levodopa Cr 50/200 [Sinemet Cr 50/200] 1 tab PO HS 04/15/17 Carbidopa/Levodopa [Carbidopa-Levodopa 25-100 Tab] 1 each PO HS 04/15/17 QUEtiapine FUMARATE [Seroquel] 12.5 mg PO DAILY 04/15/17 QUEtiapine FUMARATE [Seroquel] 25 mg PO BID 04/15/17 QUEtiapine FUMARATE [Seroquel] 75 mg PO HS 04/15/17 Acetaminophen [Tylenol] 650 mg PO QID PRN #1 tablet 04/18/17 Ciprofloxacin HCl [Cipro] 500 mg PO BID #30 tab 04/18/17 Fluticasone Propionate [Flonase] 2 spray NS DAILY #1 inhaler 04/18/17 LORazepam [Ativan] 0.5 mg PO QID PRN #120 tablet 04/18/17
[2017-04-18] MEDS ORDERED: POTASSIUM CHLORIDE 10 MEQ TABLET.SA PO SCH (09:00)
[2017-04-18] MEDS: FLUTICASONE PROPIONATE 120 SPRAY INHALER NS SCH (09:10)
[2017-04-18] MEDS: CALCIUM CARBONATE/VITAMIN D3 1 TAB TABLET PO SCH ×2 (09:11→12:42)
[2017-04-18] MEDS: ASPIRIN 81 MG TABLET.DR PO SCH (09:11)
[2017-04-18] MEDS: DOCUSATE SODIUM 100 MG CAPSULE PO SCH (09:12)
[2017-04-18] MEDS: MAGNESIUM OXIDE 400 MG TABLET PO SCH (09:13)
[2017-04-18] MEDS: ENOXAPARIN SODIUM 30 MG/0.3 ML SYRG SC SCH (09:13)
[2017-04-18] MEDS: LEVOTHYROXINE SODIUM 25 MCG TABLET PO SCH (09:14)
[2017-04-18 16:28] VITALS: BP 142/74
== END 2017-04-18 13:31 | disposition home or self-care (01) | DRG 872 ==
LOC: ER 16:37 → UNDOADMOB 18:42 → MS 18:42 → OBSVTOIN 04-16 07:30
PROVIDERS: ADMIT Internal Medicine; ATTEND Allergy & Immunology
PROC: 0T9B70Z Drainage of Bladder with Drainage Device, Via Natural or Artificial Opening (ICD-10-PCS; principal; 2017-04-15)
DX: A41.9 Sepsis, unspecified organism (principal); N30.01 Acute cystitis with hematuria; E87.6 Hypokalemia; E83.51 Hypocalcemia; E86.0 Dehydration; D69.6 Thrombocytopenia, unspecified; R41.0 Disorientation, unspecified; K21.9 Gastro-esophageal reflux disease without esophagitis; I10 Essential (primary) hypertension; G20 Parkinson's disease; F02.80 Dementia in other diseases classified elsewhere, unspecified severity, without behavioral disturbance, psychotic disturbance, mood disturbance, and anxiety; E03.9 Hypothyroidism, unspecified
CPT/HCPCS: 36415; 51702; 71010; 80048; 80053; 81001; 82150; 83605; 83690; 83880; 84132; 84145; 84484; 85007; 85025; 87040; 87077; 87086; 87186; 93005; 94640; 96365; 96367; 96375; 97110; 97116; 97162; 97165; 97530; 99285; G0378; G8978; G8979; G8980; G8987; G8988; G8989

== ENCOUNTER 2017-05-20 13:04 | Emergency (ER) | payer MEDICARE, BC ==
[2017-05-20] MEDS ORDERED: NORMAL SALINE 1,000 ML IV ONE (13:58)
[2017-05-20 14:12] LABS: Hematocrit 36.7 % (37.0-47.0); Hemoglobin 11.9 gm/dL (12.5-16.0); Mean Cell Volume 87.4 fl (78-100); Mean Corpuscular Hemoglobin 28.3 pg (27-31); Mean Corpuscular Hgb Conc 32.4 g/dl (32-36); Mean Platelet Volume 10.8 fl (6.0-9.5); Neutrophil # 5.2 K/mm3 (1.3-6.0); Neutrophil % 72.2 % (42-75.0); Platelet Count 158 K/mm3 (150-450); Red Cell Distribution Width 16.3 % (11.5-14.0); White Blood Count 7.2 K/mm3 (4.0-10.5)
--- NOTE | 2017-05-20 14:22 | ERNOTE ---
Medical Problem HPI - General Chief Complaint: General Assessment Time Seen by Provider: 05/20/17 13:33 Source: patient, family Exam Limitations: no limitations - Immun/Allergies/Home Medications Immunizations: IMMUNIZATION HX Immunizations Up to Date Yes History of Influenza Vaccine Yes Hx Pneumococcal Vaccination Yes Allergies/Adverse Reactions: Allergies loratadine [From Claritin] Allergy (Unknown, Verified 05/20/17 13:26) pseudoephedrine HCl [From Sudafed] Allergy (Verified 05/20/17 13:26) enalapril maleate [From Vasotec] Adverse Reaction (Unknown, Verified 05/20/17 13 :26) enalaprilat dihydrate [From Vasotec] Adverse Reaction (Unknown, Verified 13:26) nitrofurantoin [From Macrobid] Adverse Reaction (Unknown, Verified 05/20/17 13: 26) nitrofurantoin macrocrystalline [From Macrobid] Adverse Reaction (Unknown, Verified 05/20/17 13:26) Penicillins Adverse Reaction (Unknown, Verified 05/20/17 13:26) Home Medications: HOME MEDICATIONS Calcium Carbonate/Vitamin D3 [Os-Doug 500-Vit D3 600 Caplet] 1 each PO TID [Last Taken 01/04/16 12:00] Magnesium 250 mg PO DAILY 01/04/16 [Last Taken 01/04/16 08:00] Montelukast Sodium [Singulair] 10 mg PO DAILY 01/04/16 [Last Taken 01/03/16] Omeprazole [Prilosec] 40 mg PO BID 01/04/16 [Last Taken 01/04/16 08:00] Levothyroxine Sodium [Synthroid] 25 mcg PO DAILY #30 tablet 01/12/16 [Last Taken Unknown] Melatonin 3,000 mcg PO HS tablet 01/12/16 [Last Taken Unknown] Atorvastatin Calcium [Lipitor] 40 mg PO DAILY 03/07/16 [Last Taken Unknown] Albuterol Sulfate [Proair Hfa] 1 - 2 puff IH Q4H PRN 04/15/17 [Last Taken Unknown] Carbidopa/Levodopa Cr 50/200 [Sinemet Cr 50/200] 1 tab PO HS 04/15/17 [Last Taken 04/14/17 20:00] Carbidopa/Levodopa [Carbidopa-Levodopa 25-100 Tab] 1 each PO HS 04/15/17 [Last Taken 04/14/17 20:00] QUEtiapine FUMARATE [Seroquel] 12.5 mg PO DAILY 04/15/17 [Last Taken 04/15/17 08 :00] QUEtiapine FUMARATE [Seroquel] 25 mg PO BID 04/15/17 [Last Taken Unknown] QUEtiapine FUMARATE [Seroquel] 75 mg PO HS 04/15/17 [Last Taken Unknown] Acetaminophen [Tylenol] 650 mg PO QID PRN #1 tablet 04/18/17 [Last Taken Unknown ] LORazepam [Ativan] 0.5 mg PO QID PRN #120 tablet 04/18/17 [Last Taken Unknown] Ciprofloxacin HCl [Cipro] 250 mg PO BID #20 tablet 05/20/17 [Last Taken Unknown] Hydrochlorothiazide [Microzide] 12.5 mg PO DAILY 05/20/17 [Last Taken Unknown] - History of Present History Narrative: Patient states that she feels weak and somewhat lethargic and that she is having a little bit more difficulty controlling the symptoms of her Parkinson's disease. Patient states the last time that happened she had urosepsis. Timing: constant Severity: moderate Review of Systems - Review of Systems Constitutional: Present: See HPI EYE: Present: no symptoms reported ENT: Present: no symptoms reported Respiratory: Present: no symptoms reported Cardiology: Present: no symptoms reported Gastrointestinal/Abdominal: Present: no symptoms reported Genitourinary: Present: no symptoms reported Musculoskeletal: Present: no symptoms reported Skin: Present: no symptoms reported Neurological: Present: tremors - however more pronounced and harder to control at this juncture Endocrine: Present: no symptoms reported Hematologic/Lymphatic: Present: no symptoms reported Psych: Present: no symptoms reported - Patient's Past Medical History Patient History - Medical: Anxiety, GERD, Headache, Hypothyroidism, Kidney stone , Osteoporosis, UTI'S, Other Patient History - Cardiac/Respiratory: No pertinent hx, Hypertension Patient History - Cancer: No Hx of Cancer Patient History - Surgical Procedures: Appendectomy, Cholecystectomy, Colon Resection, , Hysterectomy, Other Patient History - Other: None - Family History Father Family History - Medical: , Diabetes Type 2 Family History - Cardiac/Respiratory: CVA/Stroke Family History - Cancer: Pancreatic Mother Family History - Medical: , UTI'S Family History - Cardiac/Respiratory: No pertinent hx Family History - Cancer: Melanoma - Social History Living Situations: home Abuse History: No History of abuse Psych History: Hx of Anxiety Does anyone smoke in the home?: No Alcohol Use: none Drug Use: none - Immunizations Immunizations Up to Date: Yes Hx Pneumococcal Vaccination: Yes History of Influenza Vaccine: Yes Physical Exam - Physical Exam General Appearance: Present: wd/wn, alert, mild distress Head Exam: Present: normal inspection Eye Exam: Normal inspection: bilateral, PERRL: bilateral Ears, Nose, Throat: Present: normal ENT inspection, H, normal pharynx Neck: Present: normal inspection, nontender Respiratory: Present: no respiratory distress, normal breath sounds, no accessory muscle use, chest nontender, lungs clear Cardiovascular/Chest: Present: regular rate, rhythm, no murmur, normal peripheral pulses, other - with a heart rate appeared to be high on the monitor on auscultation her heart rate was more in the 80s and her tremors are giving the false appearance of tachycardia Gastrointestinal/Abdominal: Present: normal bowel sounds, nontender, nondistended, soft, no organomegaly Rectal Exam: Present: deferred Back Exam: Present: normal inspection, normal range of motion Extremity Exam: Present: normal inspection, non-tender, no edema, normal range of motion Neurological Exam: Present: alert, oriented, normal mood/affect, disoriented to time, other - chronic tremors from her Parkinson's disease, questionable mild dementia Skin Exam: Present: normal color, warm/dry Lymphatic Exam: Present: no adenopathy ED Progress - Results and Orders Patient's Lab Results:: I have reviewed the patient's lab results. - Vital Signs Patient's Vital Signs:: I have reviewed the patient's vital signs. Vital Signs: Vital Signs 05/20/17 05/20/17 05/20/17 13:20 13:48 14:13 Temperature 37.1 C Pulse Rate 163 H 112 H 99 Respiratory 14 26 H 19 Rate Blood Pressure 115/61 95/70 136/84 O2 Sat by Pulse 94 97 100 Oximetry - X-Ray X-Ray #1 X-Ray: chest Interpretation: Reviewed by me - Progress/Reassessment Chief Complaint: General Assessment Progress:: Improved Plan - Plan Plan: Patient presents in more than adequate time to treat the urinary tract infection before because urosepsis again. Patient be started on antibiotics at home and she was given an oral dose of potassium to bring her potassium back into the normal range.. Is to follow-up with her family physician within one week. Patient was successfully treated approximately a month ago with Cipro. As the patient has renal insufficiency I will give her 250 of Cipro 3 times a day for 10 days and she will call Dr. Blas Mcgregor for appointment Departure - Departure Clinical Impression: Parkinson disease UTI (urinary tract infection) Qualifiers: Urinary tract infection type: acute cystitis Hematuria presence: without hematuria Qualified Code(s): N30.00 - Acute cystitis without hematuria Disposition: Home self-care Condition: Good Instructions: Parkinson Disease, [id number], Urinary Tract Infection, Adult, [id number] Referrals: Evaristo Vincent MD [Primary Care Provider] - Prescriptions: Ciprofloxacin HCl [Cipro] 250 mg PO BID #20 tablet
[2017-05-20 14:25] LABS: Urine Bilirubin Negative (NEGATIVE); Urine Blood Negative /ul (NEGATIVE); Urine Ketone 5 mg/dL (NEGATIVE); Urine Nitrite Negative (NEGATIVE); Urine Protein 15 mg/dL (NEGATIVE); Urine Specific Gravity 1.025 SP.GR. (1.005-1.010); Urine Urobilinogen Normal (NORMAL)
[2017-05-20 14:31] LABS: ALT 6 U/L (19-67); AST 3 U/L (0-48); Albumin * 3.5 gm/dl (3.4-5.0); Alkaline Phosphatase * 93 U/L (50-170); Anion Gap 12.7 mmol/L (6.8-13.8); Bilirubin, Total 0.3 mg/dL (0.0-1.1); Blood Urea Nitrogen 18 mg/dL (3-23); Ca. Corrected For Albumin 9.2 mg/dL (8.4-10.2); Calcium * 9.1 mg/dL (7.9-10.9); Carbon Dioxide 28.6 mmol/L (24-32.6); Chloride 105 mmol/L (97-106); Glucose * 120 mg/dL (70-110); Potassium 3.3 mmol/L (3.4-4.6); Sodium 143 mmol/L (132-142); Troponin I Less than 0.017 ng/ml (0.00-0.10)
[2017-05-20 14:47] LABS: Urine Appearance Clear; Urine Bacteria None Seen; Urine Color Dark Yellow; Urine RBC None Seen /hpf (0-5)
[2017-05-20] MEDS ORDERED: POTASSIUM CHLORIDE 20 MEQ TABLET.SA PO ONE (14:56)
[2017-05-20] MEDS ORDERED: POTASSIUM CHLORIDE 20 MEQ TABLET.SA ONE (15:02)
[2017-05-20 15:28] VITALS: BP 122/53
== END 2017-05-20 16:04 | disposition home or self-care (01) ==
LOC: ER 13:04
DX: G20 Parkinson's disease (principal); N30.00 Acute cystitis without hematuria; I10 Essential (primary) hypertension

== ENCOUNTER 2017-05-28 11:44 | Day surgery (SDC) | payer MEDICARE, BC ==
[~2017-05-28 11:44] MED LIST: METOCLOPRAMIDE HCL 5 MG/ML VIAL IV PRN; MORPHINE SULFATE 2 MG/ML DISP.SYRIN IV PRN; NORMAL SALINE 1,000 ML IV PRN; ONDANSETRON HCL/PF 2 MG/ML VIAL IV PRN; OXYBUTYNIN CHLORIDE 5 MG TABLET PO PRN
[2017-05-28] MEDS ORDERED: NORMAL SALINE 1,000 ML IV ONE (12:30)
--- NOTE | 2017-05-28 14:41 | OR ---
Operative Report - Dictated Report Narrative: Location: Main OR Anesthesia: General Surgeon: Dr. Gambino Preoperative diagnosis: Right proximal ureteral stone(s) Postoperative diagnosis: Same, obstructive change to bladder with decreased capacity consistent with neurogenic bladder, proteinaceous material on stone consistent with possible colonization Procedure: #1 Cystoscopy with Bilateral retrograde pyelograms #2 Right flexible ureteroscopy with holmium laser lithotripsy 6x24 double j stent Indications: 71-year-old female with history of sepsis and recurrent UTI discovered to have a proximal right ureteral calculus on CT. Discussed options and elected to proceed with above-mentioned procedure. Has also had an acute worsening of urgency/frequency/urge incontinence. Description: Consent obtained. Patient brought to the operating room where general endotracheal anesthesia was induced. Placed in the dorsal lithotomy position. Prepped and draped. Timeout taken. Rigid cystoscope introduced into the bladder with ease and quick cystoscopy revealed no tumors, stones or suspicious lesions . Bladder is heavily trabeculated for female with some [place] diverticula and definite decreased capacity. No evidence of urethral stricture or other obstructive cause. Leads me to believe there is a neurogenic component to the bladder probably Parkinson' s. Bilateral retrogrades obtained and interpreted by Dr. Carranza. Left ureter identified intubated with 5 [place] catheter and left retrograde obtained. 5-7 mL of Isovue was injected. Distal, mid and proximal ureter delicate without filling defects or hydronephrosis. Proximal collecting system nonhydronephrotic, delicate calyces, no filling defects. Essentially normal retrograde. Prompt drainage upon removal of catheter. . Right ureter identified intubated with 5 [place] catheter and right retrograde obtained. Distal, mid and proximal ureter were delicate without filling defects to about the level of the UPJ. Shadowing filling defect consistent with known location of stone however with pressure from the retrograde the stone migrated to the lower pole calyx. Calyces were intact and did not look dilated or blunted and there was no hydronephrosis. TurningArtson guidewire was advanced under fluoroscopic guidance up the right ureter. Flexible ureteroscope was then used and advanced into the ureter alongside the wire. Stone was encountered in the lower pole calyx. 200 micron laser fiber was used. Energy of 0.2-0.4 joules and a rate of 40 hertz was used to fragment the stone into submillimeter pieces. Stone did have a proteinaceous film attached to it and consistency was such that I do think there is an infectious component luckily it was the only stone and fragmented well. 6 x 24 double-J stent was then placed over the safety wire under fluoroscopic guidance with good curls in the kidney and bladder. Specimen: None EBL: 0 ml Condition: tolerated procedure Important findings: Small capacity trabeculated bladder with obstructive change but no evidence of obstruction suspect neurogenic from Parkinson's. Right renal stone successfully treated with stent. Follow-up: Next Friday in the OR for flexible cystoscopy with stent removal, no anesthesia, ceftriaxone 2 g on-call to or
[2017-05-28 16:39] VITALS: BP 109/61
== END 2017-05-28 11:45 | disposition home or self-care (01) ==
LOC: AMB 11:44
PROVIDERS: ATTEND Urology
PROC: 0T768DZ Dilation of Right Ureter with Intraluminal Device, Via Natural or Artificial Opening Endoscopic (ICD-10-PCS; 2017-05-28)
PROC: 0TF68ZZ Fragmentation in Right Ureter, Via Natural or Artificial Opening Endoscopic (ICD-10-PCS; principal; 2017-05-28 13:30)
DX: N20.1 Calculus of ureter (principal); I10 Essential (primary) hypertension; J43.9 Emphysema, unspecified; Z68.31 Body mass index [BMI] 31.0-31.9, adult

== ENCOUNTER 2017-06-03 18:51 | Observation (INO) | payer MEDICARE, BC ==
--- NOTE | 2017-06-03 19:15 | ERNOTE ---
ER Female HPI Date of Service: 06/03/17 Stated Complaint: SHAKEY,WEAKNESS,AMS Presenting Symptoms: other - Hematuria Time Seen by Provider: 06/03/17 19:12 Source: patient, family, RN notes reviewed, past records Exam Limitations: no limitations Immunizations: IMMUNIZATION HX Immunizations Up to Date Yes History of Influenza Vaccine No Hx Pneumococcal Vaccination Yes Allergies/Adverse Reactions: Allergies adhesive tape Allergy (Mild, Verified 05/28/17 12:13) Other rash nitrofurantoin [From Macrobid] Allergy (Mild, Verified 05/28/17 12:13) Hives nitrofurantoin macrocrystalline [From Macrobid] Allergy (Mild, Verified 12:13) Hives enalapril maleate [From Vasotec] Allergy (Unknown, Verified 05/28/17 12:13) enalaprilat dihydrate [From Vasotec] Allergy (Unknown, Verified 05/28/17 12:13) loratadine [From Claritin] Allergy (Unknown, Verified 05/28/17 12:13) Penicillins Allergy (Unknown, Verified 05/28/17 12:13) clindamycin Adverse Reaction (Mild, Verified 05/28/17 12:13) Diarrhea pseudoephedrine HCl [From Sudafed] Adverse Reaction (Mild, Verified 05/28/17 12: 13) INCREASE BP Home Medications: HOME MEDICATIONS Calcium Carbonate/Vitamin D3 [Os-Doug 500-Vit D3 600 Caplet] 1 each PO TID [Last Taken 01/04/16 12:00] Omeprazole [Prilosec] 40 mg PO DAILY 01/04/16 [Last Taken 01/04/16 08:00] Atorvastatin Calcium [Lipitor] 40 mg PO DAILY 03/07/16 [Last Taken Unknown] Albuterol Sulfate [Proair Hfa] 2 puff IH Q4H PRN 04/15/17 [Last Taken Unknown] Carbidopa/Levodopa [Carbidopa-Levodopa 25-100 Tab] 1 each PO TID 04/15/17 [Last Taken 04/14/17 20:00] Aspirin [Aspirin Enteric Coated] 81 mg PO DAILY 05/27/17 [Last Taken Unknown] Cholecalciferol (Vitamin D3) [Vitamin D3] 50,000 unit PO Q7D 05/27/17 [Last Taken Unknown] Docusate Sodium [Colace] 100 mg PO BID PRN 05/27/17 [Last Taken Unknown] Magnesium Oxide [Magnesium] 250 mg PO DAILY 05/27/17 [Last Taken Unknown] Levofloxacin [Levaquin] 500 mg PO DAILY #1 tablet 05/28/17 [Last Taken Unknown] Hydrochlorothiazide 12.5 mg PO DAILY 06/03/17 [Last Taken Unknown] LORazepam [Ativan] 0.5 mg PO QID PRN 06/03/17 [Last Taken Unknown] Levothyroxine Sodium [Synthroid] 25 mcg PO DAILY 06/03/17 [Last Taken Unknown] Methenamine Hippurate 1 gm PO BID 06/03/17 [Last Taken Unknown] Mirabegron [Myrbetriq] 50 mg PO DAILY 06/03/17 [Last Taken Unknown] Montelukast Sodium [Singulair] 10 mg PO HS 06/03/17 [Last Taken Unknown] QUEtiapine FUMARATE [Seroquel] 12.5 mg PO DAILY 06/03/17 [Last Taken Unknown] QUEtiapine FUMARATE [Seroquel] 25 mg PO BID 06/03/17 [Last Taken Unknown] QUEtiapine FUMARATE [Seroquel] 75 mg PO HS 06/03/17 [Last Taken Unknown] - History of Present Illness Narrative: 71 year old female brought to the ED by her family for hematuria that began yesterday. She had a ureteral stent placed last week and is scheduled to have it removed tomorrow. Her family contacted her urologist, Dr. Carranza, who started her on Levaquin today and recommended that she have lab work checked. She has had severe urinary frequency and nausea today. Date (Duration): 06/02/17 Associated Symptoms: Present: diaphoresis, nausea, urinary frequency. Absent: fever/chills, vomiting, abdominal pain, dysuria Prior Treatment: Present: recently seen, treated by physician, currently on antibiotics Review of Systems - Review of Systems Constitutional: Present: diaphoresis, fatigue, malaise. Absent: chills EYE: Present: no symptoms reported ENT: Present: no symptoms reported Respiratory: Absent: shortness of breath, cough Cardiology: Absent: chest pain, edema Gastrointestinal/Abdominal: Present: nausea, eating less, drinking less. Absent : vomiting, diarrhea, constipation, abdominal pain Genitourinary: Present: frequency, hematuria. Absent: decreased urinary output Musculoskeletal: Present: no symptoms reported Skin: Absent: rash, lesions Neurological: Absent: headache, dizziness/light-headedness Endocrine: Present: no symptoms reported Hematologic/Lymphatic: Present: no symptoms reported Psych: Present: no symptoms reported - Patient's Past Medical History Patient History - Medical: Dementia, Hypothyroidism, UTI'S, Other - Parkinson's disease Patient History - Cardiac/Respiratory: Hypertension Patient History - Cancer: No Hx of Cancer Patient History - Surgical Procedures: Appendectomy, Cholecystectomy, Colon Resection, , Hysterectomy, Total Knee Replacement, Other, Urology Patient History - Other: None LMP (females 10-50): Menopausal - Family History Father Family History - Medical: , Diabetes Type 2 Family History - Cardiac/Respiratory: CVA/Stroke Family History - Cancer: Pancreatic Mother Family History - Medical: , UTI'S Family History - Cardiac/Respiratory: No pertinent hx Family History - Cancer: Melanoma - Social History Living Situations: spouse Abuse History: No History of abuse Psych History: Hx of Anxiety Does anyone smoke in the home?: No Smoking Status: Never smoker Have you smoked in the past 12 months: No Do you dip or chew tobacco: No Alcohol Use: none Drug Use: none - Immunizations Immunizations Up to Date: Yes Hx Pneumococcal Vaccination: Yes History of Influenza Vaccine: No Physical Exam - Physical Exam General Appearance: Present: wd/wn, alert, mild distress Neck: Present: normal inspection, nontender, supple Respiratory: Present: no respiratory distress, normal breath sounds, no accessory muscle use, lungs clear Cardiovascular/Chest: Present: no murmur, normal peripheral pulses, tachycardia Gastrointestinal/Abdominal: Present: nondistended, soft, tenderness - mild, suprapubic. Absent: guarding, rebound, mass Back Exam: Present: normal inspection, no CVA tenderness Extremity Exam: Present: normal inspection, normal range of motion, no edema Neurological Exam: Present: alert, oriented, other - severe tremor. Absent: normal mood/affect Skin Exam: Present: warm/dry, diaphoresis ED Progress - Results and Orders Patient's Lab Results:: I have reviewed the patient's lab results. - Vital Signs Patient's Vital Signs:: I have reviewed the patient's vital signs. Vital Signs: Vital Signs 06/03/17 06/03/17 18:51 19:01 Temperature 37.0 C Pulse Rate 104 H Respiratory 16 Rate Blood Pressure 118/70 126/76 O2 Sat by Pulse 95 Oximetry - Progress/Reassessment Chief Complaint: Genitourinary Problem Progress:: Unchanged Plan - Plan Plan: Contacted Dr. Carranza regarding lab results. Agreeable to patient staying as observation status tonight for IV fluids and antibiotics. Will be NPO after midnight for stent removal as planned tomorrow. Hospitalist contacted. Dominic IVPB ordered in ED. Blood and urine cultures pending. Departure Clinical Impression: Urinary tract infection Qualifiers: Urinary tract infection type: site unspecified Hematuria presence: with hematuria Qualified Code(s): N39.0 - Urinary tract infection, site not specified ; R31.9 - Hematuria, unspecified Leukocytosis Qualifiers: Leukocytosis type: unspecified Qualified Code(s): D72.829 - Elevated white blood cell count, unspecified - Departure Disposition: [facility] Condition: Stable Referrals: Evaristo Vincent MD [Primary Care Provider] -
[2017-06-03 19:35] LABS: Hematocrit 37.9 % (37.0-47.0); Hemoglobin 12.4 gm/dL (12.5-16.0); Mean Cell Volume 86.9 fl (78-100); Mean Corpuscular Hemoglobin 28.4 pg (27-31); Mean Corpuscular Hgb Conc 32.7 g/dl (32-36); Mean Platelet Volume 11.1 fl (6.0-9.5); Neutrophil % 74.7 % (42-75.0); Platelet Count 176 K/mm3 (150-450); Red Blood Count 4.36 M/mm3 (4.2-5.4); Red Cell Distribution Width 15.6 % (11.5-14.0)
[2017-06-03 19:50] LABS: Urine Bilirubin Negative (NEGATIVE); Urine Blood 250 /ul (NEGATIVE); Urine Ketone 15 mg/dL (NEGATIVE); Urine Protein >=300 mg/dL (NEGATIVE); Urine Specific Gravity 1.025 SP.GR. (1.005-1.010); Urine pH 6.5 pH (5.0-7.0)
[2017-06-03 19:53] LABS: Albumin * 3.5 gm/dl (3.4-5.0); BUN/Creatinine Ratio 19.3 (9.0-21.6); Bilirubin, Total 0.4 mg/dL (0.0-1.1); Ca. Corrected For Albumin 9.3 mg/dL (8.4-10.2); Calcium * 9.2 mg/dL (7.9-10.9); Carbon Dioxide 27.5 mmol/L (24-32.6); Potassium 3.5 mmol/L (3.4-4.6); Total Protein 7.8 gm/dL (6.2-8.2)
[2017-06-03 19:58] LABS: Urine Nitrite Positive (NEGATIVE)
[2017-06-03 19:59] LABS: Urine Appearance Turbid; Urine Bacteria 3+; Urine Color Red; Urine RBC >50 /hpf (0-5); Urine WBC 0-5 /hpf (0-5)
--- NOTE | 2017-06-03 21:51 | HP ---
<Milo Spaulding - Last Filed: 06/03/17 22:58> Chief Complaint - Chief Complaint Date of Service: 06/03/17 Time of Service: 21:51 Chief Complaint: hematuria, s/p ureteral stent History of Present Illness: 71 years old female adm to the hospital from ER with reports of feeling very clammy, frequent urination and hematuria. pt is S/P ureteral stent secondary renal stones. Stent placement was last week Friday with Dr meng. She is schedule to have stent removed tomorrow. information obtained from as a pt a poor historian. PMH significant for Anxiety, Asthma, Diabetes, GERD, HTN, Kidney Stones, Lewy Body Dementia, Osteoporosis, Parkinsonism & Shy- Drager Syndrome. per pt been having frequent urination that varies in bloody to rust color. very clammy without reports of fever or chills. Pt was instructed by urologist to get lab work done today. she had been septic in the past, family was concerned and brought her to the ER at urologist recommendation. Pt had taken her Levaquin at home before coming to the hospital. In ER she was Rocephin x1 and will continue with IVF hydration. Will adm for obv and urologist will be following. Plan of care discussed with pt via phone, he verbalized understanding and agrees. - Patient's Past Medical History Patient History - Medical: Dementia, Hypothyroidism, UTI'S, Other - Parkinson's disease Patient History - Cardiac/Respiratory: Hypertension Patient History - Cancer: No Hx of Cancer Patient History - Surgical Procedures: Appendectomy, Cholecystectomy, Colon Resection, , Hysterectomy, Total Knee Replacement, Other, Urology - lithotripsy, stent placement Patient History - Other: None LMP (females 10-50): Menopausal - Family History Father Family History - Medical: , Diabetes Type 2 Family History - Cardiac/Respiratory: CVA/Stroke Family History - Cancer: Pancreatic Mother Family History - Medical: , UTI'S Family History - Cardiac/Respiratory: No pertinent hx Family History - Cancer: Melanoma - Social History Living Situations: spouse Abuse History: No History of abuse Psych History: Hx of Anxiety Does anyone smoke in the home?: No Smoking Status: Never smoker Have you smoked in the past 12 months: No Do you dip or chew tobacco: No Alcohol Use: none Drug Use: none - Immunizations Immunizations Up to Date: Yes Hx Pneumococcal Vaccination: Yes History of Influenza Vaccine: No Review Of Systems (GEN) - Review of Systems Generalized/Overall Review: Present: Malaise, Diaphoresis, Fatigue EENTM: Present: No Symptoms Reported Respiratory: Present: No Symptoms Reported Cardiac: Present: No Symptoms Reported Abdominal: Present: No Symptoms Reported Genitourinary: Present: Frequency, Hematuria Musculoskeletal: Present: No Symptoms Reported Neurological: Present: Tremors Skin: Present: Other - clammy Endocrine: Present: No Symptoms Reported Immunizations: IMMUNIZATION HX Immunizations Up to Date Yes History of Influenza Vaccine No Hx Pneumococcal Vaccination Yes Allergies/Adverse Reactions: Allergies Allergy/AdvReac Type Severity Reaction Status Date / Time adhesive tape Allergy Mild Other Verified 05/28/17 12:13 nitrofurantoin Allergy Mild Hives Verified 05/28/17 12:13 [From Macrobid] nitrofurantoin Allergy Mild Hives Verified 05/28/17 12:13 macrocrystalline [From Macrobid] enalapril maleate Allergy Unknown Verified 05/28/17 12:13 [From Vasotec] enalaprilat dihydrate Allergy Unknown Verified 05/28/17 12:13 [From Vasotec] loratadine [From Claritin] Allergy Unknown Verified 05/28/17 12:13 Penicillins Allergy Unknown Verified 05/28/17 12:13 clindamycin AdvReac Mild Diarrhea Verified 05/28/17 12:13 pseudoephedrine HCl AdvReac Mild INCREASE BP Verified 05/28/17 12:13 [From Sudafed] Home Medications: HOME MEDICATIONS Calcium Carbonate/Vitamin D3 [Os-Doug 500-Vit D3 600 Caplet] 1 each PO TID [Last Taken 01/04/16 12:00] Omeprazole [Prilosec] 40 mg PO DAILY 01/04/16 [Last Taken 01/04/16 08:00] Atorvastatin Calcium [Lipitor] 40 mg PO DAILY 03/07/16 [Last Taken Unknown] Aspirin [Aspirin Enteric Coated] 81 mg PO DAILY 05/27/17 [Last Taken Unknown] Docusate Sodium [Colace] 100 mg PO BID PRN 05/27/17 [Last Taken Unknown] Magnesium Oxide [Magnesium] 250 mg PO DAILY 05/27/17 [Last Taken Unknown] LORazepam [Ativan] 0.5 mg PO QID PRN 06/03/17 [Last Taken Unknown] Levothyroxine Sodium [Synthroid] 25 mcg PO DAILY 06/03/17 [Last Taken Unknown] Montelukast Sodium [Singulair] 10 mg PO HS 06/03/17 [Last Taken Unknown] QUEtiapine FUMARATE [Seroquel] 50 mg PO BID 06/03/17 [Last Taken Unknown] QUEtiapine FUMARATE [Seroquel] 100 mg PO DAILY 06/03/17 [Last Taken Unknown] QUEtiapine FUMARATE [Seroquel] 150 mg PO HS 06/03/17 [Last Taken Unknown] Acetaminophen 650 mg PO QID PRN 06/04/17 [Last Taken Unknown] Albuterol Sulfate [Proair Hfa] 180 mcg IH QID 06/04/17 [Last Taken Unknown] Carbidopa/Levodopa [Carbidopa-Levodopa 25-100 Tab] 0.5 tab PO TID 06/04/17 [ Last Taken Unknown] EPINEPHrine [Epipen] 0.3 mg IJ PRN PRN 06/04/17 [Last Taken Unknown] Estradiol [Estrace] 0.5 mg PO DAILY 06/04/17 [Last Taken Unknown] Flonase 100 mcg SATYA DAILY 06/04/17 [Last Taken Unknown] Fluticasone Furoate [Arnuity Ellipta] 100 mcg IH DAILY 06/04/17 [Last Taken Unknown] KCL 10 Meq 10 meq PO DAILY 06/04/17 [Last Taken Unknown] Melatonin/Pyridoxine HCl (B6) [Melatonin 3 mg Tablet] 3 mg PO HS 06/04/17 [Last Taken Unknown] Melatonin/Pyridoxine HCl (B6) [Melatonin 5 mg Tablet] 1 each PO HS 06/04/17 [ Last Taken Unknown] Exam - Exam Vital Signs: Vital Signs - Last Taken Temp 36.6 C 06/03/17 20:45 Pulse 86 06/03/17 20:45 Resp 18 06/03/17 20:45 BP 133/85 06/03/17 20:45 Pulse Ox 92 06/03/17 20:45 Constitutional: Present: Alert, Oriented x3, Cooperative, Elderly ENT Exam: Present: hearing grossly normal Eye Exam: bilateral eye: normal inspection Neck: Present: full range of motion Back Exam: Present: normal inspection Breasts: Present: Exam deferred Respiratory: Present: chest non-tender, lungs clear, normal breath sounds, no respiratory distress Cardiovascular/Chest: Present: normal peripheral pulses, tachycardia Peripheral Pulses: dorsalis-pedis (R): 3+, dorsalis-pedis (L): 3+ Abdomen: Present: Normal bowel sounds, soft, nontender Extremity: Present: normal range of motion, non-tender, normal inspection Skin Exam: Present: diaphoresis Neurologic: Present: alert, oriented x 3, motor weakness Appearance: Present: appropriate appearance Eye contact: Present: cooperative, good eye contact Thoughts: Present: normal thought pattern Diagnostic Studies: Laboratory Results WBC 12.0 K/mm3 (4.0-10.5) H 06/03/17 19:30 RBC 4.36 M/mm3 (4.2-5.4) 06/03/17 19:30 Hgb 12.4 gm/dL (12.5-16.0) L 06/03/17 19:30 Hct 37.9 % (37.0-47.0) 06/03/17 19:30 MCV 86.9 fl (78-100) 06/03/17 19:30 MCH 28.4 pg (27-31) 06/03/17 19:30 MCHC 32.7 g/dl (32-36) 06/03/17 19:30 RDW 15.6 % (11.5-14.0) H 06/03/17 19:30 Plt Count 176 K/mm3 (150-450) 06/03/17 19:30 MPV 11.1 fl (6.0-9.5) H 06/03/17 19:30 Immature Gran % (Auto) 0.30 % (0.001-0.429) 06/03/17 19:30 Immature Gran # (Auto) 0.04 K/mm3 (0.000-0.0310) H 06/03/17 19:30 Neutrophils % 74.7 % (42-75.0) 06/03/17 19:30 Lymphocytes % 12.8 % (20-51) L 06/03/17 19:30 Monocytes % 10.2 % (0.0-9) H 06/03/17 19:30 Eosinophils % 1.5 % (0.0-3.0) 06/03/17 19:30 Basophils % 0.5 % (0.0-1.0) 06/03/17 19:30 Nucleated RBC % 0.0 k/mm3 (0-1) 06/03/17 19:30 Neutrophils # 9.0 K/mm3 (1.3-6.0) H 06/03/17 19:30 Lymphocytes # 1.5 k/mm3 (1.5-3.5) 06/03/17 19:30 Monocytes # 1.2 k/mm3 (0.0-1.0) H 06/03/17 19:30 Eosinophils # 0.2 k/mm3 (0.0-0.7) 06/03/17 19:30 Absolute Basophils 0.1 k/mm3 (0.0-0.1) 06/03/17 19:30 Sodium 141 mmol/L (132-142) 06/03/17 19:30 Plasma Sodium 141 mmol/L (130-142) 06/03/17 19:30 Potassium 3.5 mmol/L (3.4-4.6) 06/03/17 19:30 Chloride 103 mmol/L (97-106) 06/03/17 19:30 Carbon Dioxide 27.5 mmol/L (24-32.6) 06/03/17 19:30 Anion Gap 14.0 mmol/L (6.8-13.8) H 06/03/17 19:30 BUN 21 mg/dL (3-23) 06/03/17 19:30 Creatinine 1.09 mg/dL (0.4-1.4) 06/03/17 19:30 Est GFR (Non-Af Amer) 53 mL/min (60-130) L 06/03/17 19:30 BUN/Creatinine Ratio 19.3 (9.0-21.6) 06/03/17 19:30 Random Glucose 130 mg/dL (70-110) H 06/03/17 19:30 Lactic Acid, Venous 1.3 mmol/L (0.4-1.9) 06/03/17 19:30 Calcium 9.2 mg/dL (7.9-10.9) 06/03/17 19:30 Calcium Adj for Albumin 9.3 mg/dL (8.4-10.2) 06/03/17 19:30 Total Bilirubin 0.4 mg/dL (0.0-1.1) 06/03/17 19:30 AST 3 U/L (0-48) 06/03/17 19:30 ALT 7 U/L (19-67) L 06/03/17 19:30 Alkaline Phosphatase 100 U/L (50-170) 06/03/17 19:30 Total Protein 7.8 gm/dL (6.2-8.2) 06/03/17 19:30 Albumin 3.5 gm/dl (3.4-5.0) 06/03/17 19:30 Procalcitonin Less than 0.05 ng/mL (0.05-0.50) L 06/03/17 19:30 Urine Color Red 06/03/17 19:46 Urine Appearance Turbid 06/03/17 19:46 Urine pH 6.5 pH (5.0-7.0) 06/03/17 19:46 Ur Specific Yolyn 1.025 SP.GR. (1.005-1.010) 06/03/17 19:46 Urine Protein >=300 mg/dL (NEGATIVE) H 06/03/17 19:46 Urine Glucose (UA) Negative mg/dL (NEGATIVE) 06/03/17 19:46 Urine Ketones 15 mg/dL (NEGATIVE) 06/03/17 19:46 Urine Blood 250 /ul (NEGATIVE) H 06/03/17 19:46 Urine Nitrate Positive (NEGATIVE) H 06/03/17 19:46 Urine Bilirubin Negative mg/dl (NEGATIVE) 06/03/17 19:46 Prot Sulfosalicylic Acd 4+ mg/dL (0) H 06/03/17 19:46 Urine Urobilinogen 2.0 EU/dl (NORMAL) H 06/03/17 19:46 Ur Leukocyte Esterase 100 /ul (NEGATIVE) H 06/03/17 19:46 Urine RBC >50 /hpf (0-5) H 06/03/17 19:46 Urine WBC 0-5 /hpf (0-5) 06/03/17 19:46 Ur Epithelial Cells None seen /hpf (0-5) 06/03/17 19:46 Urine Bacteria 3+ (NONE) H 06/03/17 19:46 Urine Culture Comments Culture to follow 06/03/17 19:46 Assessment/Plan - Narrative Narrative: UTI- secondary to stone obstruction S/P urethral stent placement per pt had lithotripsy and stent placement last Friday Pt been taking Levaquin at home, last dose was earlier tonight. Blood culture and urine culture pending Rocephin given in ER, monitor cbc in AM. Encourage oral hydration and IVF S/P urethral stent placement Urologist following, plan to remove stent tomorrow. Plan same as #1 Leukocytosis- possible reactive post stent placement or UTI Slight elevation on WBC 12.0 on adm Monitor CBC in am Parkinson disease - stable comfort measures Resume home medications Code status: Full VTE ppx: SCD GI ppx:Prilosec Time 40 minutes Previous records reviewed. - Assessment/Plan (1) Parkinson disease Problem: Chronic (2) Leukocytosis Problem: Acute QualifierTitle: Leukocytosis type: unspecified Qualified Code(s): D72.829 - Elevated white blood cell count, unspecified (3) UTI (urinary tract infection) Problem: Acute QualifierTitle: Urinary tract infection type: site unspecified Hematuria presence: with hematuria Qualified Code(s): N39.0 - Urinary tract infection, site not specified; R31.9 - Hematuria, unspecified <Evaristo Vincent - Last Filed: 06/04/17 12:15> History of Present Illness: Agree with plan, awaiting for further direction from urology. I personally directed all of our nurse practitioner hospitalist care for this person. Immunizations: IMMUNIZATION HX Immunizations Up to Date Yes History of Influenza Vaccine No Hx Pneumococcal Vaccination Yes Exam - Exam Vital Signs: Vital Signs - Last Taken Temp 36.9 C 06/04/17 10:00 Pulse 95 06/04/17 10:00 Resp 18 06/04/17 10:00 BP 159/67 06/04/17 10:00 Pulse Ox 99 06/04/17 10:00 Diagnostic Studies: Laboratory Results WBC 12.0 K/mm3 (4.0-10.5) H 06/03/17 19:30 RBC 4.36 M/mm3 (4.2-5.4) 06/03/17 19:30 Hgb 12.4 gm/dL (12.5-16.0) L 06/03/17 19:30 Hct 37.9 % (37.0-47.0) 06/03/17 19:30 MCV 86.9 fl (78-100) 06/03/17 19:30 MCH 28.4 pg (27-31) 06/03/17 19:30 MCHC 32.7 g/dl (32-36) 06/03/17 19:30 RDW 15.6 % (11.5-14.0) H 06/03/17 19:30 Plt Count 176 K/mm3 (150-450) 06/03/17 19:30 MPV 11.1 fl (6.0-9.5) H 06/03/17 19:30 Immature Gran % (Auto) 0.30 % (0.001-0.429) 06/03/17 19:30 Immature Gran # (Auto) 0.04 K/mm3 (0.000-0.0310) H 06/03/17 19:30 Neutrophils % 74.7 % (42-75.0) 06/03/17 19:30 Lymphocytes % 12.8 % (20-51) L 06/03/17 19:30 Monocytes % 10.2 % (0.0-9) H 06/03/17 19:30 Eosinophils % 1.5 % (0.0-3.0) 06/03/17 19:30 Basophils % 0.5 % (0.0-1.0) 06/03/17 19:30 Nucleated RBC % 0.0 k/mm3 (0-1) 06/03/17 19:30 Neutrophils # 9.0 K/mm3 (1.3-6.0) H 06/03/17 19:30 Lymphocytes # 1.5 k/mm3 (1.5-3.5) 06/03/17 19:30 Monocytes # 1.2 k/mm3 (0.0-1.0) H 06/03/17 19:30 Eosinophils # 0.2 k/mm3 (0.0-0.7) 06/03/17 19:30 Absolute Basophils 0.1 k/mm3 (0.0-0.1) 06/03/17 19:30 Sodium 141 mmol/L (132-142) 06/03/17 19:30 Plasma Sodium 141 mmol/L (130-142) 06/03/17 19:30 Potassium 3.5 mmol/L (3.4-4.6) 06/03/17 19:30 Chloride 103 mmol/L (97-106) 06/03/17 19:30 Carbon Dioxide 27.5 mmol/L (24-32.6) 06/03/17 19:30 Anion Gap 14.0 mmol/L (6.8-13.8) H 06/03/17 19:30 BUN 21 mg/dL (3-23) 06/03/17 19:30 Creatinine 1.09 mg/dL (0.4-1.4) 06/03/17 19:30 Est GFR (Non-Af Amer) 53 mL/min (60-130) L 06/03/17 19:30 BUN/Creatinine Ratio 19.3 (9.0-21.6) 06/03/17 19:30 Random Glucose 130 mg/dL (70-110) H 06/03/17 19:30 Lactic Acid, Venous 1.3 mmol/L (0.4-1.9) 06/03/17 19:30 Calcium 9.2 mg/dL (7.9-10.9) 06/03/17 19:30 Calcium Adj for Albumin 9.3 mg/dL (8.4-10.2) 06/03/17 19:30 Total Bilirubin 0.4 mg/dL (0.0-1.1) 06/03/17 19:30 AST 3 U/L (0-48) 06/03/17 19:30 ALT 7 U/L (19-67) L 06/03/17 19:30 Alkaline Phosphatase 100 U/L (50-170) 06/03/17 19:30 Total Protein 7.8 gm/dL (6.2-8.2) 06/03/17 19:30 Albumin 3.5 gm/dl (3.4-5.0) 06/03/17 19:30 Procalcitonin Less than 0.05 ng/mL (0.05-0.50) L 06/03/17 19:30 Urine Color Red 06/03/17 19:46 Urine Appearance Turbid 06/03/17 19:46 Urine pH 6.5 pH (5.0-7.0) 06/03/17 19:46 Ur Specific Yolyn 1.025 SP.GR. (1.005-1.010) 06/03/17 19:46 Urine Protein >=300 mg/dL (NEGATIVE) H 06/03/17 19:46 Urine Glucose (UA) Negative mg/dL (NEGATIVE) 06/03/17 19:46 Urine Ketones 15 mg/dL (NEGATIVE) 06/03/17 19:46 Urine Blood 250 /ul (NEGATIVE) H 06/03/17 19:46 Urine Nitrate Positive (NEGATIVE) H 06/03/17 19:46 Urine Bilirubin Negative mg/dl (NEGATIVE) 06/03/17 19:46 Prot Sulfosalicylic Acd 4+ mg/dL (0) H 06/03/17 19:46 Urine Urobilinogen 2.0 EU/dl (NORMAL) H 06/03/17 19:46 Ur Leukocyte Esterase 100 /ul (NEGATIVE) H 06/03/17 19:46 Urine RBC >50 /hpf (0-5) H 06/03/17 19:46 Urine WBC 0-5 /hpf (0-5) 06/03/17 19:46 Ur Epithelial Cells None seen /hpf (0-5) 06/03/17 19:46 Urine Bacteria 3+ (NONE) H 06/03/17 19:46 Urine Culture Comments Culture to follow 06/03/17 19:46
[2017-06-04] MEDS: NORMAL SALINE 1,000 ML IV PRN ×2 (01:24→13:53)
--- NOTE | 2017-06-04 12:47 | PN ---
Subjective - Date and Time Seen Date: 06/04/17 Time: 07:10 Subjective Narrative: Chills, sweats, fatigue. Objective - Review of Systems Generalized/Overall Review: Reports: Malaise EENTM: Reports: No Symptoms Reported Respiratory: Reports: No Symptoms Reported Cardiac: Reports: No Symptoms Reported Abdominal: Reports: No Symptoms Reported Genitourinary Symptoms: Reports: No Symptoms Reported Musculoskeletal Complaints: Reports: No Symptoms Reported Neurological: Reports: Pre-existing Deficit Skin: Reports: No Symptoms Reported Endocrine: Reports: Flushing Misc: All systems neg except as marked - Vitals Vitals: Last Vital Signs Temp 36.9 C 06/04/17 10:00 Pulse 95 06/04/17 10:00 Resp 18 06/04/17 10:00 BP 159/67 06/04/17 10:00 Pulse Ox 99 06/04/17 10:00 - Exam Constitutional: Present: Alert, Oriented x3, Cooperative, Well developed, Well nourished, No distress ENT Exam: Present: normal ENT inspection Neck: Present: normal inspection Respiratory: Present: lungs clear, no respiratory distress Cardiovascular/Chest: Present: regular rate, rhythm, no murmur Abdomen: Present: Normal bowel sounds, soft, nontender, nondistended, no rebound tenderness, no hepatospenomegaly Extremity: Present: normal inspection, no pedal edema Skin Exam: Present: normal color, warm/dry, no cyanosis Neurologic: Present: alert, other - tremor Appearance: Present: appropriate appearance Eye contact: Present: cooperative Assessment/Plan Plan Narrative: Change in antibiotics. Labs. Disposition depending on urology. - Problems/Diagnosis (1) Parkinson disease Problem: Acute (2) UTI (urinary tract infection) Problem: Acute Qualifiers: Urinary tract infection type: site unspecified Hematuria presence: with hematuria Qualified Code(s): N39.0 - Urinary tract infection, site not specified; R31.9 - Hematuria, unspecified
[2017-06-04 12:58] LABS: Hematocrit 35.1 % (37.0-47.0); Hemoglobin 11.4 gm/dL (12.5-16.0); Mean Corpuscular Hemoglobin 27.9 pg (27-31); Mean Corpuscular Hgb Conc 32.5 g/dl (32-36); Mean Platelet Volume 11.5 fl (6.0-9.5); Neutrophil # 8.9 K/mm3 (1.3-6.0); Neutrophil % 76.3 % (42-75.0); Platelet Count 179 K/mm3 (150-450); Red Blood Count 4.08 M/mm3 (4.2-5.4); Red Cell Distribution Width 15.8 % (11.5-14.0); White Blood Count 11.7 K/mm3 (4.0-10.5)
[2017-06-04 13:06] LABS: Anion Gap 13.2 mmol/L (6.8-13.8); BUN/Creatinine Ratio 25.9 (9.0-21.6); Calcium * 8.8 mg/dL (7.9-10.9); Carbon Dioxide 27.2 mmol/L (24-32.6); Estimated Creat Clear 43.6; Potassium 3.4 mmol/L (3.4-4.6)
[2017-06-04] MEDS ORDERED: NORMAL SALINE 1,000 ML IV ONE (14:50)
--- NOTE | 2017-06-04 15:16 | OR ---
Operative Report - Dictated Report Narrative: Preoperative diagnosis: Indwelling stent Postoperative diagnosis: Same Anesthesia: None Procedure: Flexible cystoscopy with stent removal Indications: Indwelling stent Descritpion: Consent obtained. Patient prepped and drapped. Lidocaine jelly used to anesthetize urethra. Flexible scope inserted and navigated to bladder. Stent identified, grasped and pulled per urethra. Patient tolerated. EBL: 0 ml Specimen: None Condition: Tolerated procedure ment with me on June 11 for follow-up. Stent came out okay. I reviewed chart and all her infection markers came back looking okay. I do not think she has active infection but do believe she got into trouble with stent discomfort. Ultimately up to primary service in regards to discharge but I do believe she is okay to go home tonight. Alternatively can keep her overnight with one more dose of IV Rocephin and discharged first thing in the morning. She already has a prescription for Levaquin for me. Family filled prescription for Myrbetriq for her bladder overactivity. Okay to advance diet if she has been nothing by mouth.
[2017-06-04] MEDS ORDERED: DOCUSATE SODIUM 100 MG CAPSULE PO PRN (19:42)
[2017-06-04] MEDS ORDERED: ACETAMINOPHEN 325 MG TABLET PO PRN (19:42)
[2017-06-04] MEDS ORDERED: LORazepam 0.5 MG TABLET PO PRN (19:42)
[2017-06-04] MEDS ORDERED: CARBIDOPA/LEVODOPA 25/100 1 TAB TABLET PO SCH (19:45)
[2017-06-04] MEDS ORDERED: MELATONIN 3,000 MCG TABLET PO SCH (21:00)
[2017-06-04] MEDS ORDERED: ALBUTEROL SULFATE 200 PUFF INHALER IH SCH (21:00)
[2017-06-04] MEDS ORDERED: QUEtiapine FUMARATE 25 MG TABLET PO SCH (21:00)
[2017-06-04] MEDS ORDERED: MONTELUKAST SODIUM 10 MG TABLET PO SCH (21:00)
[2017-06-04] MEDS ORDERED: ALBUTEROL SULFATE 200 PUFF INHALER IH PRN (21:23)
[2017-06-04] MEDS ORDERED: FLUTICASONE PROPIONATE 120 SPRAY INHALER NS PRN (21:24)
[2017-06-04] MEDS ORDERED: HYDROCHLOROTHIAZIDE 12.5 MG CAPSULE PO SCH (21:30)
[2017-06-04] MEDS: CALCIUM CARBONATE/VITAMIN D3 1 TAB TABLET PO SCH (21:36)
[2017-06-04] MEDS: METHENAMINE MANDELATE 1 GM TABLET PO SCH (23:10)
[2017-06-05] MEDS: NORMAL SALINE 1,000 ML IV PRN (03:03)
[2017-06-05] MEDS ORDERED: ALBUTEROL SULFATE 2.5 MG/0.5 ML VIAL.NEB IH PRN (06:30)
[2017-06-05] MEDS ORDERED: PANTOPRAZOLE SODIUM 40 MG TABLET.EC PO SCH ×2 (07:00→09:00)
--- NOTE | 2017-06-05 08:01 | DS ---
(1) Parkinson disease Problem: Acute (2) UTI (urinary tract infection) Problem: Acute Qualifiers: Urinary tract infection type: site unspecified Hematuria presence: with hematuria Qualified Code(s): N39.0 - Urinary tract infection, site not specified; R31.9 - Hematuria, unspecified Procedures Performed: see notes below - Removal of ureteral stent Discharge Disposition: Home self care Disposition: Home self-care Condition: Stable Referrals: Evaristo Vincent MD [Primary Care Provider] - Consultation Done:: Dr. Carranza, urology Problem Oriented Discharge Instructions to Patient/Family: Urinary Tract Infection, Adult, [id number] Additional Patient Instructions (free text): TCM appointment at discharge. Please call Hortencia at [phone] when discharged. [facility]. Please call report and fax orders and face to face upon discharge. ' Take the Levaquin antibiotic already prescribed by Dr. Carranza. Keep your appointment with Dr. Carranza on June 11 Complete Home Medications List: Complete Home Medication List: Calcium Carbonate/Vitamin D3 [Os-Doug 500-Vit D3 600 Caplet] 1 each PO TID Omeprazole [Prilosec] 40 mg PO BID 01/04/16 Atorvastatin Calcium [Lipitor] 40 mg PO DAILY 03/07/16 Aspirin [Aspirin Enteric Coated] 81 mg PO DAILY 05/27/17 Docusate Sodium [Colace] 100 mg PO BID 05/27/17 Magnesium Oxide [Magnesium] 250 mg PO DAILY 05/27/17 LORazepam [Ativan] 0.5 mg PO QID PRN 06/03/17 Levothyroxine Sodium [Synthroid] 25 mcg PO DAILY 06/03/17 Montelukast Sodium [Singulair] 10 mg PO HS 06/03/17 QUEtiapine FUMARATE [Seroquel] 50 mg PO HS 06/03/17 Acetaminophen 650 mg PO QID PRN 06/04/17 Albuterol Sulfate [Proair Hfa] 180 mcg IH QID PRN 06/04/17 Carbidopa/Levodopa Cr 50/200 [Sinemet Cr 50/200] 1 tab PO HS 06/04/17 EPINEPHrine [Epipen] 0.3 mg IJ PRN PRN 06/04/17 Estrogens, Conjugated [Premarin] 1 appl VG 2XW 06/04/17 Flonase 100 mcg SATYA DAILY PRN 06/04/17 Hydrochlorothiazide 12.5 mg PO DAILY 06/04/17 KCL 10 Meq 10 meq PO DAILY 06/04/17 Melatonin/Pyridoxine HCl (B6) [Melatonin 3 mg Tablet] 3 mg PO HS 06/04/17 Methenamine Hippurate 1 gm PO BID 06/04/17 Mirabegron [Myrbetriq] 50 mg PO DAILY 06/04/17 Estrogens, Conjugated [Premarin] 1 appl VG 2XW tube 06/05/17
[2017-06-05] MEDS: CALCIUM CARBONATE/VITAMIN D3 1 TAB TABLET PO SCH (08:37)
[2017-06-05] MEDS ORDERED: MAGNESIUM OXIDE 400 MG TABLET PO SCH (09:00)
[2017-06-05] MEDS ORDERED: DOCUSATE SODIUM 100 MG CAPSULE PO SCH (09:00)
[2017-06-05] MEDS ORDERED: ASPIRIN 81 MG TABLET.DR PO SCH (09:00)
[2017-06-05] MEDS ORDERED: FLUTICASONE PROPIONATE 120 SPRAY INHALER NS SCH (09:00)
[2017-06-05] MEDS ORDERED: CARBIDOPA/LEVODOPA 25/100 1 TAB TABLET PO SCH (09:00)
[2017-06-05] MEDS ORDERED: LEVOTHYROXINE SODIUM 25 MCG TABLET PO SCH (09:00)
[2017-06-05] MEDS ORDERED: ESTRADIOL 0.5 MG TABLET PO SCH (09:00)
[2017-06-05] MEDS ORDERED: POTASSIUM CHLORIDE 10 MEQ TABLET.SA PO SCH (09:00)
[2017-06-05] MEDS ORDERED: ESTROGENS, CONJUGATED 30 APPL TUBE VG SCH (09:00)
[2017-06-05] MEDS ORDERED: ATORVASTATIN CALCIUM 40 MG TABLET PO SCH (09:00)
[2017-06-05] MEDS ORDERED: FLUTICASONE FUROATE 100 MCG IH SCH (09:00)
[2017-06-05] MEDS: METHENAMINE MANDELATE 1 GM TABLET PO SCH (09:52)
[2017-06-05 09:56] VITALS: BP 128/72
[2017-06-05] MEDS ORDERED: QUEtiapine FUMARATE 25 MG TABLET PO SCH (21:00)
[2017-06-05] MEDS ORDERED: CARBIDOPA/LEVODOPA CR 50/200 1 TAB TABLET.SA PO SCH (21:00)
== END 2017-06-05 11:54 | disposition home health service (06) ==
LOC: ER 18:51 → MS 20:54
PROVIDERS: ADMIT Internal Medicine; ATTEND Allergy & Immunology
PROC: 0T9B7ZZ Drainage of Bladder, Via Natural or Artificial Opening (ICD-10-PCS; principal; 2017-06-03)
PROC: 0TP98DZ Removal of Intraluminal Device from Ureter, Via Natural or Artificial Opening Endoscopic (ICD-10-PCS; 2017-06-04)
DX: T83.592A Infection and inflammatory reaction due to indwelling ureteral stent, initial encounter (principal); N39.0 Urinary tract infection, site not specified; R31.9 Hematuria, unspecified; G20 Parkinson's disease; G31.83 Neurocognitive disorder with Lewy bodies; F02.80 Dementia in other diseases classified elsewhere, unspecified severity, without behavioral disturbance, psychotic disturbance, mood disturbance, and anxiety; E03.9 Hypothyroidism, unspecified; D72.829 Elevated white blood cell count, unspecified; N20.0 Calculus of kidney; E11.9 Type 2 diabetes mellitus without complications; Z68.30 Body mass index [BMI] 30.0-30.9, adult
CPT/HCPCS: 36415; 51701; 52310; 80048; 80053; 81001; 83605; 84145; 85025; 87040; 87086; 96365; 96366; 99284; G0378